=== PATIENT | female | born 1970 | race Hispanic/Latino ===

== ENCOUNTER 2021-11-05 13:24 | Inpatient (IN) | payer MEDICARE, OTHER ==
[~2021-11-05] VITALS: Ht 180.3 cm; Wt 146.5 kg
[2021-11-05 14:09] LABS: BASOPHILS % 0.4 % (0.0-1.0); EOSINOPHILS # (AUTO) 0.4 (0.0-0.4); EOSINOPHILS % 4.8 % (0.0-6.0); LYMPHOCYTES # (AUTO) 1.2 (1.0-3.2); MEAN CORPUSCULAR HEMOGLOBIN 32.4 pg (28-32); MEAN CORPUSCULAR HGB CONC 30.3 g/dL (31-35); MEAN CORPUSCULAR VOLUME 106.9 fL (81-99); MONOCYTES # (AUTO) 0.6 (0.2-0.8); MONOCYTES % 6.6 % (4.4-11.3); NEUTROPHILS # (AUTO) 6.1 (2.1-6.9); NEUTROPHILS % 72.3 % (38.7-80.0); PLATELET COUNT 291 x10e3/uL (140-360); RED BLOOD COUNT 2.04 x10e6/uL (3.6-5.1); RED CELL DISTRIBUTION WIDTH 15.9 % (11.7-14.4)
[2021-11-05 14:11] LABS: HEMATOCRIT 21.8 % (34.2-44.1); HEMOGLOBIN 6.6 g/dL (12.0-16.0)
[2021-11-05 14:26] LABS: ALBUMIN/GLOBULIN RATIO 0.8 (0.8-2.0); ANION GAP 18.6 mmol/L (8-16); CALCIUM 7.7 mg/dL (8.4-10.2); CREATININE, SERUM 6.17 mg/dL (0.57-1.11)
[2021-11-05 14:32] LABS: CREATINE KINASE MB 1.8 ng/mL (0-5.0)
[2021-11-05 14:33] LABS: POTASSIUM 6.6 mmol/L (3.5-5.1)
[2021-11-05] MEDS ORDERED: SODIUM BICARBONATE 8.4% INJ 50 ML SYR IV STA (14:34)
[2021-11-05] MEDS ORDERED: ALBUTEROL SULF 0.083% NEB SOLN 3 ML NEB NEB STA (14:34)
[2021-11-05] MEDS ORDERED: DEXTROSE 50% SYRINGE 50 ML IV STA (14:34)
[2021-11-05] MEDS ORDERED: INSULIN REGULAR, HUMAN 100 UNIT/1 ML SQ ONE (14:45)
[2021-11-05] MEDS ORDERED: CALCIUM GLUC 1 G/50 ML NACL 50 ML IV ONE (14:45)
[2021-11-05] MEDS ORDERED: DEXTROSE 50% SYRINGE 50 ML IV PRN (15:00)
[2021-11-05 16:42] VITALS: BP 175/68
[2021-11-05 16:46] VITALS: BP 175/68
[2021-11-05] MEDS: INSULIN LISPRO 100 UNIT/1 ML 3ML VIAL SQ SCH ×2 (16:50→20:42)
[2021-11-05 17:02] VITALS: BP 175/68
[2021-11-05] MEDS ORDERED: RENAPLEX-D TAB1 EACH PO (17:50)
[2021-11-05] MEDS ORDERED: VITAMIN D250 MCG PO (17:50)
[2021-11-05] MEDS ORDERED: GABAPENTIN100 MG PO (17:50)
[2021-11-05] MEDS ORDERED: BUMETANIDE1 MG PO (17:50)
[2021-11-05] MEDS ORDERED: NIFEDIPINE10 MG PO (17:50)
[2021-11-05] MEDS ORDERED: HUMALOG MI100 UNIT/2 SQ (17:50)
[2021-11-05] MEDS ORDERED: ONDANSETRON ODT4 MG PO (17:50)
[2021-11-05] MEDS ORDERED: RENAGEL800 MG PO (17:50)
[2021-11-05] MEDS ORDERED: OMEGA-3 FISH1000 MG PO (17:50)
[2021-11-05] MEDS ORDERED: LANTUS 3ML100 UNITS/ SC (17:50)
[2021-11-05] MEDS ORDERED: LOPID600 MG PO (17:50)
[2021-11-05] MEDS ORDERED: LOSARTAN POTASS25 MG PO (17:50)
[2021-11-05] MEDS ORDERED: CARVEDILOL12.5 MG PO (17:50)
[2021-11-05] MEDS ORDERED: SODIUM CHLORIDE 0.9% 1000ML 2,000 ML ONE (18:11)
[2021-11-05] MEDS: ACETAMINOPHEN 325 MG TAB PO PRN (19:00)
[2021-11-05 20:28] VITALS: BP 176/65
[2021-11-05] MEDS ORDERED: HEPARIN SOD (PORCINE) 1000 UNIT/ML SDV IV ONE (21:15)
[2021-11-05 21:18] VITALS: BP 176/65
[2021-11-06] VITALS (9 sets, daily range): BP systolic 121–164; BP diastolic 48–87
[2021-11-06 01:22] LABS: BASOPHILS % 0.4 % (0.0-1.0); EOSINOPHILS # (AUTO) 0.3 (0.0-0.4); EOSINOPHILS % 3.3 % (0.0-6.0); HEMATOCRIT 23.6 % (34.2-44.1); HEMOGLOBIN 7.5 g/dL (12.0-16.0); LYMPHOCYTES # (AUTO) 1.2 (1.0-3.2); LYMPHOCYTES % 13.4 % (18.0-39.1); MEAN CORPUSCULAR HEMOGLOBIN 31.5 pg (28-32); MEAN CORPUSCULAR HGB CONC 31.8 g/dL (31-35); MEAN CORPUSCULAR VOLUME 99.2 fL (81-99); MONOCYTES # (AUTO) 0.6 (0.2-0.8); MONOCYTES % 7.2 % (4.4-11.3); NEUTROPHILS # (AUTO) 6.4 (2.1-6.9); NEUTROPHILS % 74.2 % (38.7-80.0); PLATELET COUNT 285 x10e3/uL (140-360); RED BLOOD COUNT 2.38 x10e6/uL (3.6-5.1); RED CELL DISTRIBUTION WIDTH 17.1 % (11.7-14.4)
[2021-11-06] MEDS: ACETAMINOPHEN 325 MG TAB PO PRN (03:20)
[2021-11-06 06:37] LABS: BASOPHILS % 0.4 % (0.0-1.0); EOSINOPHILS # (AUTO) 0.4 (0.0-0.4); EOSINOPHILS % 4.5 % (0.0-6.0); HEMATOCRIT 23.6 % (34.2-44.1); HEMOGLOBIN 7.3 g/dL (12.0-16.0); LYMPHOCYTES # (AUTO) 1.3 (1.0-3.2); LYMPHOCYTES % 15.6 % (18.0-39.1); MEAN CORPUSCULAR HEMOGLOBIN 31.3 pg (28-32); MEAN CORPUSCULAR HGB CONC 30.9 g/dL (31-35); MEAN CORPUSCULAR VOLUME 101.3 fL (81-99); MONOCYTES # (AUTO) 0.7 (0.2-0.8); NEUTROPHILS % 70.4 % (38.7-80.0); PLATELET COUNT 276 x10e3/uL (140-360); RED BLOOD COUNT 2.33 x10e6/uL (3.6-5.1); RED CELL DISTRIBUTION WIDTH 17.3 % (11.7-14.4)
[2021-11-06 07:06] LABS: ALBUMIN 2.7 g/dL (3.5-5.0); ALBUMIN/GLOBULIN RATIO 0.8 (0.8-2.0); ANION GAP 14.9 mmol/L (8-16); CALCIUM 7.6 mg/dL (8.4-10.2); CREATININE, SERUM 4.34 mg/dL (0.57-1.11); POTASSIUM 4.9 mmol/L (3.5-5.1)
[2021-11-06] MEDS: INSULIN LISPRO 100 UNIT/1 ML 3ML VIAL SQ SCH ×2 (07:30→11:30)
[2021-11-06] MEDS ORDERED: HEPARIN SOD (PORCINE) 1000 UNIT/ML SDV IV PRN (10:15)
[2021-11-06] MEDS ORDERED: SODIUM CHLORIDE 0.9% 1000ML 2,000 ML IV PRN (10:15)
[2021-11-06] MEDS ORDERED: BUMETANIDE 1 MG TAB PO SCH (11:00)
[2021-11-06] MEDS ORDERED: ERGOCALCIFEROL 1250 MCG PO SCH (11:00)
[2021-11-06] MEDS ORDERED: ONDANSETRON HCL 4 MG ORAL DISINTEGRATING TAB PO PRN (11:00)
[2021-11-06] MEDS: INS LISP PRO/LISP HUMAN 75/25 100 UNITS/ML VIAL SC SCH ×2 (11:30→16:30)
[2021-11-06] MEDS ORDERED: SODIUM CHLORIDE 0.9% 250ML 250 ML IV ONE (12:00)
[2021-11-06] MEDS: SEVELAMER CARBONATE 800 MG TAB PO SCH ×2 (12:00→16:37)
[2021-11-06] MEDS ORDERED: SODIUM CHLORIDE 0.9% 250ML 250 ML ONE (12:22)
[2021-11-06] MEDS: GABAPENTIN 100 MG CAP PO SCH (16:37)
[2021-11-06] MEDS: GEMFIBROZIL 600 MG TAB PO SCH (16:37)
[2021-11-06 18:19] LABS: FERRITIN 429.46 ng/mL (4.63-204.00)
[2021-11-06] MEDS: INSULIN GLARGINE 100 UNITS/ML VIAL SQ SCH (21:49)
[2021-11-07] VITALS: BP 143/58
[2021-11-07 04:00] VITALS: BP 167/78
[2021-11-07 06:32] LABS: BASOPHILS % 0.4 % (0.0-1.0); EOSINOPHILS # (AUTO) 0.5 (0.0-0.4); EOSINOPHILS % 7.4 % (0.0-6.0); HEMATOCRIT 25.2 % (34.2-44.1); HEMOGLOBIN 7.9 g/dL (12.0-16.0); LYMPHOCYTES # (AUTO) 1.5 (1.0-3.2); LYMPHOCYTES % 20.3 % (18.0-39.1); MEAN CORPUSCULAR HEMOGLOBIN 31.6 pg (28-32); MEAN CORPUSCULAR HGB CONC 31.3 g/dL (31-35); MEAN CORPUSCULAR VOLUME 100.8 fL (81-99); MONOCYTES # (AUTO) 0.7 (0.2-0.8); MONOCYTES % 9.5 % (4.4-11.3); NEUTROPHILS # (AUTO) 4.4 (2.1-6.9); NEUTROPHILS % 61.6 % (38.7-80.0); PLATELET COUNT 260 x10e3/uL (140-360); RED CELL DISTRIBUTION WIDTH 17.2 % (11.7-14.4)
[2021-11-07 06:55] LABS: ALBUMIN 2.6 g/dL (3.5-5.0); ALBUMIN/GLOBULIN RATIO 0.7 (0.8-2.0); ANION GAP 14.5 mmol/L (8-16); CALCIUM 7.9 mg/dL (8.4-10.2); CREATININE, SERUM 4.16 mg/dL (0.57-1.11); POTASSIUM 4.5 mmol/L (3.5-5.1)
[2021-11-07 08:00] VITALS: BP 168/82
[2021-11-07] MEDS: SEVELAMER CARBONATE 800 MG TAB PO SCH (08:13)
[2021-11-07] MEDS: GABAPENTIN 100 MG CAP PO SCH (08:13)
[2021-11-07] MEDS: GEMFIBROZIL 600 MG TAB PO SCH (08:13)
[2021-11-07] MEDS: INS LISP PRO/LISP HUMAN 75/25 100 UNITS/ML VIAL SC SCH (08:14)
[2021-11-07] MEDS: INSULIN GLARGINE 100 UNITS/ML VIAL SQ SCH (08:15)
[2021-11-07] MEDS ORDERED: FOLIC ACID/CYANOCOB/PYRIDOXINE TAB PO SCH (09:00)
[2021-11-07] MEDS ORDERED: LOSARTAN POTASSIUM 25 MG TAB PO SCH (09:00)
[2021-11-07] MEDS ORDERED: CARVEDILOL 12.5 MG TAB PO SCH (09:00)
[2021-11-07] MEDS ORDERED: NIFEDIPINE CR 30 MG TAB PO SCH (09:00)
[2021-11-07] MEDS ORDERED: OMEGA 3 POLYUNSAT FATTY ACIDS 1000 MG SOFTGEL PO SCH (09:00)
[2021-11-07 11:30] VITALS: BP 133/75
== END 2021-11-07 11:34 | disposition home or self-care (01) | DRG 811 ==
LOC: ER 13:47 → ERHOLD 14:57 → ER 15:30 → MED/SURG3 15:43
PROVIDERS: ADMIT Internal Medicine; ATTEND Internal Medicine
PROC: 30233N1 Transfusion of Nonautologous Red Blood Cells into Peripheral Vein, Percutaneous Approach (ICD-10-PCS; principal; 2021-11-05)
DX: D62 Acute posthemorrhagic anemia (principal); N18.6 End stage renal disease; I13.2 Hypertensive heart and chronic kidney disease with heart failure and with stage 5 chronic kidney disease, or end stage renal disease; N92.1 Excessive and frequent menstruation with irregular cycle; E87.5 Hyperkalemia; Z99.2 Dependence on renal dialysis; Z91.15 Patient's noncompliance with renal dialysis; E11.22 Type 2 diabetes mellitus with diabetic chronic kidney disease; I50.9 Heart failure, unspecified; Z88.5 Allergy status to narcotic agent; Z88.8 Allergy status to other drugs, medicaments and biological substances; Z88.7 Allergy status to serum and vaccine; D63.1 Anemia in chronic kidney disease; Z20.822 Contact with and (suspected) exposure to COVID-19; Z83.3 Family history of diabetes mellitus; Z82.49 Family history of ischemic heart disease and other diseases of the circulatory system; E11.42 Type 2 diabetes mellitus with diabetic polyneuropathy; Z79.4 Long term (current) use of insulin
CPT/HCPCS: 36415; 71045; 80053; 82550; 82553; 82607; 82728; 82747; 82948; 83540; 83880; 84466; 84484; 85025; 86705; 86706; 86850; 86900; 86920; 87340; 93005; 94640; 94799; 99284; J1644; J1815; J1817; J7030; J7050; J7799; P9016; Q0162; U0002

== ENCOUNTER 2021-11-24 19:15 | Inpatient (IN) | payer MEDICARE, OTHER ==
[~2021-11-24] VITALS: Ht 154.9 cm; Wt 152.4 kg
[~2021-11-24 19:15] MED LIST: BUMETANIDE1 MG PO; CARVEDILOL12.5 MG PO; GABAPENTIN100 MG PO; HUMALOG MI100 UNIT/2 SQ; LANTUS 3ML100 UNITS/ SC; LOPID600 MG PO; LOSARTAN POTASS25 MG PO; NIFEDIPINE10 MG PO; OMEGA-3 FISH1000 MG PO; ONDANSETRON ODT4 MG PO; RENAGEL800 MG PO; RENAPLEX-D TAB1 EACH PO; VITAMIN D250 MCG PO
[2021-11-24] MEDS ORDERED: SODIUM CHLORIDE FLUSH 10 ML SYR IV PRN (19:30)
[2021-11-24 19:41] LABS: BASOPHILS # (AUTO) 0.1 (0.0-0.1); BASOPHILS % 0.5 % (0.0-1.0); EOSINOPHILS # (AUTO) 0.5 (0.0-0.4); EOSINOPHILS % 3.8 % (0.0-6.0); HEMATOCRIT 32.4 % (34.2-44.1); HEMOGLOBIN 10.2 g/dL (12.0-16.0); LYMPHOCYTES # (AUTO) 1.5 (1.0-3.2); LYMPHOCYTES % 11.8 % (18.0-39.1); MEAN CORPUSCULAR HEMOGLOBIN 31.6 pg (28-32); MEAN CORPUSCULAR HGB CONC 31.5 g/dL (31-35); MEAN CORPUSCULAR VOLUME 100.3 fL (81-99); MONOCYTES # (AUTO) 0.9 (0.2-0.8); MONOCYTES % 7.1 % (4.4-11.3); NEUTROPHILS # (AUTO) 9.5 (2.1-6.9); NEUTROPHILS % 75.8 % (38.7-80.0); PLATELET COUNT 383 x10e3/uL (140-360); RED BLOOD COUNT 3.23 x10e6/uL (3.6-5.1); RED CELL DISTRIBUTION WIDTH 15.4 % (11.7-14.4)
[2021-11-24] MEDS ORDERED: Morphine 4mg Syringe 4 MG/ML INJ IV PRN (19:45)
[2021-11-24] MEDS ORDERED: ONDANSETRON HCL INJ 2MG/ML 2ML 2 MG/ML VIAL IV PRN (19:45)
[2021-11-24] MEDS ORDERED: HEPARIN SOD (PORCINE) 1000 UNIT/ML 10ML MDV IV ONE (19:45)
[2021-11-24] MEDS: ASPIRIN 325 MG TAB PO ONE ×2 (19:48→19:55)
[2021-11-24 19:50] LABS: INR 1.07; PROTHROMBIN TIME 14.9 seconds (11.9-14.5)
[2021-11-24 19:57] LABS: ALBUMIN 3.5 g/dL (3.5-5.0); ALBUMIN/GLOBULIN RATIO 0.7 (0.8-2.0); ANION GAP 20.4 mmol/L (8-16); CALCIUM 9.3 mg/dL (8.4-10.2); CREATININE, SERUM 5.5 mg/dL (0.57-1.11); POTASSIUM 4.4 mmol/L (3.5-5.1)
[2021-11-24] MEDS ORDERED: ASPIRIN 81 MG CHEW TAB ONE (19:59)
[2021-11-24] MEDS ORDERED: HEPARIN SOD (PORCINE) 5,000 UNIT/ML VIAL ONE (19:59)
[2021-11-24] MEDS ORDERED: DEXTROSE 50% SYRINGE 50 ML IV PRN ×2 (20:00→21:00)
[2021-11-24] MEDS ORDERED: ONDANSETRON HCL 4 MG ORAL DISINTEGRATING TAB PO PRN (20:00)
[2021-11-24] MEDS ORDERED: HEPARIN SOD/SOD CHLORIDE 2,000 ML ONE (20:05)
[2021-11-24] MEDS ORDERED: LIDOCAINE HCL 2% LOCAL 20 ML VIAL ONE (20:05)
[2021-11-24] MEDS ORDERED: HEPARIN SOD (PORCINE) 1000 UNIT/ML 30ML ONE (20:05)
[2021-11-24] MEDS ORDERED: IOPAMIDOL 370 MG/ML 100 ML INFUS..BTL INJ ONE ×2 (20:05→20:37)
[2021-11-24] MEDS ORDERED: SODIUM CHLORIDE 0.9% 1000ML 1,000 ML ONE (20:06)
[2021-11-24] MEDS ORDERED: VERAPAMIL HCL 2.5 MG/ML 2 ML VIAL ONE (20:06)
[2021-11-24] MEDS: Morphine 4mg Syringe 4 MG/ML INJ IV STA ×2 (20:06→20:13)
[2021-11-24] MEDS ORDERED: NITROGLYCERIN/D5W 200 MCG/ML 250 ML ONE (20:06)
[2021-11-24] MEDS ORDERED: ASPIRIN 325 MG TAB PO STA (20:06)
[2021-11-24] MEDS ORDERED: MIDAZOLAM HCL 2 MG/2 ML VIAL ONE (20:11)
[2021-11-24] MEDS ORDERED: FENTANYL CITRATE/PF 100MCG/2 ML INJ ONE (20:12)
[2021-11-24] MEDS ORDERED: HEPARIN SOD (PORCINE) 5,000 UNIT/ML VIAL IV ONE (20:15)
[2021-11-24 20:20] LABS: CREATINE KINASE MB 1.6 ng/mL (0-5.0)
[2021-11-24 20:32] LABS: MAGNESIUM 2.3 MG/DL (1.3-2.1)
[2021-11-24] MEDS ORDERED: EPTIFIBATIDE 10 ML ONE ×3 (20:40→20:44)
[2021-11-24] MEDS ORDERED: EPTIFIBATIDE 75mg 100ML 100 ML ONE (20:41)
[2021-11-24] MEDS ORDERED: ASPIRIN 81 MG CHEW TAB PO ONE (20:45)
[2021-11-24] MEDS ORDERED: NITROGLYCERIN 0.4 MG SUBL SL PRN (20:45)
[2021-11-24] MEDS ORDERED: Morphine 2mg Syringe 2 MG/ML SYR IV PRN (20:45)
[2021-11-24] MEDS ORDERED: SODIUM CHLORIDE FLUSH 10 ML SYR INJ PRN (20:45)
[2021-11-24] MEDS ORDERED: PRASUGREL 10 MG TAB ONE (20:52)
[2021-11-24] MEDS: INSULIN GLARGINE 100 UNITS/ML VIAL SQ SCH (21:00)
[2021-11-24] MEDS: ATORVASTATIN 40 MG TAB PO SCH (21:00)
[2021-11-24] MEDS ORDERED: INSULIN REGULAR, HUMAN 100 UNIT/1 ML SQ SCH (21:00)
[2021-11-24] MEDS: INSULIN REGULAR, HUMAN 100 UNIT/1 ML SQ SCH (21:00)
[2021-11-24] MEDS: FAMOTIDINE 20 MG TAB PO SCH (21:00)
[2021-11-24] MEDS: METOPROLOL SUCCINATE 50 MG TAB XL PO ONE ×2 (21:45→21:52)
[2021-11-24 21:57] VITALS: BP 163/73
[2021-11-24 22:00] VITALS: BP 170/87
[2021-11-24 23:00] VITALS: BP 161/79
[2021-11-25] VITALS (54 sets, daily range): BP systolic 103–178; BP diastolic 58–120
[2021-11-25 04:52] LABS: BASOPHILS # (AUTO) 0.1 (0.0-0.1); BASOPHILS % 0.4 % (0.0-1.0); EOSINOPHILS # (AUTO) 0.3 (0.0-0.4); EOSINOPHILS % 2.4 % (0.0-6.0); HEMATOCRIT 28.2 % (34.2-44.1); HEMOGLOBIN 8.9 g/dL (12.0-16.0); LYMPHOCYTES # (AUTO) 1.1 (1.0-3.2); MEAN CORPUSCULAR HEMOGLOBIN 31.9 pg (28-32); MEAN CORPUSCULAR HGB CONC 31.6 g/dL (31-35); MEAN CORPUSCULAR VOLUME 101.1 fL (81-99); MONOCYTES # (AUTO) 0.8 (0.2-0.8); MONOCYTES % 5.5 % (4.4-11.3); NEUTROPHILS # (AUTO) 11.6 (2.1-6.9); NEUTROPHILS % 82.8 % (38.7-80.0); PLATELET COUNT 311 x10e3/uL (140-360); RED BLOOD COUNT 2.79 x10e6/uL (3.6-5.1); RED CELL DISTRIBUTION WIDTH 15.3 % (11.7-14.4)
[2021-11-25 05:08] LABS: ALBUMIN 2.9 g/dL (3.5-5.0); ALBUMIN/GLOBULIN RATIO 0.7 (0.8-2.0); ANION GAP 18.9 mmol/L (8-16); CALCIUM 8.1 mg/dL (8.4-10.2); CREATININE, SERUM 5.63 mg/dL (0.57-1.11); POTASSIUM 4.9 mmol/L (3.5-5.1)
[2021-11-25 06:04] LABS: CHOL/HDL RATIO 7.6 (3.0-3.6)
[2021-11-25 06:07] LABS: CREATINE KINASE MB 77.9 ng/mL (0-5.0)
[2021-11-25] MEDS: INSULIN REGULAR, HUMAN 100 UNIT/1 ML SQ SCH ×4 (07:30→20:49)
[2021-11-25] MEDS: SEVELAMER CARBONATE 800 MG TAB PO SCH ×3 (07:51→16:33)
[2021-11-25] MEDS: ASPIRIN 81 MG ENTERIC COATED PO SCH (07:52)
[2021-11-25] MEDS: PRASUGREL 10 MG TAB PO SCH (07:52)
[2021-11-25] MEDS: GABAPENTIN 100 MG CAP PO SCH ×2 (07:53→16:32)
[2021-11-25] MEDS: GEMFIBROZIL 600 MG TAB PO SCH ×2 (07:53→16:32)
[2021-11-25] MEDS: OMEGA 3 POLYUNSAT FATTY ACIDS 1000 MG SOFTGEL PO SCH (07:53)
[2021-11-25] MEDS: FAMOTIDINE 20 MG TAB PO SCH ×2 (07:54→20:49)
[2021-11-25] MEDS: NIFEDIPINE 10 MG CAP PO SCH (07:54)
[2021-11-25] MEDS ORDERED: ERGOCALCIFEROL 1250 MCG PO SCH (08:15)
[2021-11-25] MEDS ORDERED: BUMETANIDE 1 MG TAB PO SCH (08:15)
[2021-11-25] MEDS ORDERED: HYDRALAZINE HCL 20 MG/ML VIAL IV PRN (08:30)
[2021-11-25] MEDS: ONDANSETRON HCL INJ 2MG/ML 2ML 2 MG/ML VIAL IV PRN (08:58)
[2021-11-25] MEDS: FOLIC PO SCH (09:00)
[2021-11-25] MEDS: ZINC PO SCH (09:00)
[2021-11-25] MEDS: CARVEDILOL 12.5 MG TAB PO SCH (09:00)
[2021-11-25] MEDS: LOSARTAN POTASSIUM 25 MG TAB PO SCH (09:00)
[2021-11-25] MEDS: [UNRECOGNIZED DRUG - OTHER] PO SCH (09:00)
[2021-11-25] MEDS ORDERED: METOPROLOL SUCCINATE 50 MG TAB XL PO SCH (09:00)
[2021-11-25] MEDS: SELENOMETH PO SCH (09:00)
[2021-11-25] MEDS: D3 PO SCH (09:00)
[2021-11-25] MEDS ORDERED: ONDANSETRON HCL INJ 2MG/ML 2ML 2 MG/ML VIAL ONE (09:04)
[2021-11-25] MEDS ORDERED: SODIUM CHLORIDE 0.9% 1000ML 2,000 ML ONE (10:16)
[2021-11-25] MEDS ORDERED: SODIUM CHLORIDE 0.9% 1000ML 2,000 ML IV PRN (10:30)
[2021-11-25] MEDS ORDERED: SODIUM CHLORIDE 0.9% 250ML 500 ML IV PRN (10:30)
[2021-11-25] MEDS ORDERED: HEPARIN SOD (PORCINE) 1000 UNIT/ML SDV IV PRN (10:30)
[2021-11-25 12:09] LABS: CREATINE KINASE MB 51.3 ng/mL (0-5.0)
[2021-11-25] MEDS: EPOETIN ALFA-EPBX 10,000 UNIT/ML VIAL SC SCH (16:33)
[2021-11-25] MEDS: ATORVASTATIN 40 MG TAB PO SCH (20:49)
[2021-11-25] MEDS: INSULIN GLARGINE 100 UNITS/ML VIAL SQ SCH (20:50)
[2021-11-26] VITALS (19 sets, daily range): BP systolic 95–166; BP diastolic 55–81
[2021-11-26 04:59] LABS: BASOPHILS % 0.4 % (0.0-1.0); EOSINOPHILS # (AUTO) 0.3 (0.0-0.4); EOSINOPHILS % 3.2 % (0.0-6.0); HEMATOCRIT 25.3 % (34.2-44.1); HEMOGLOBIN 7.7 g/dL (12.0-16.0); LYMPHOCYTES # (AUTO) 1.2 (1.0-3.2); MEAN CORPUSCULAR HEMOGLOBIN 31.4 pg (28-32); MEAN CORPUSCULAR HGB CONC 30.4 g/dL (31-35); MEAN CORPUSCULAR VOLUME 103.3 fL (81-99); MONOCYTES # (AUTO) 0.6 (0.2-0.8); MONOCYTES % 6.5 % (4.4-11.3); NEUTROPHILS # (AUTO) 7.5 (2.1-6.9); NEUTROPHILS % 77.4 % (38.7-80.0); PLATELET COUNT 276 x10e3/uL (140-360); RED BLOOD COUNT 2.45 x10e6/uL (3.6-5.1); RED CELL DISTRIBUTION WIDTH 15.4 % (11.7-14.4)
[2021-11-26 05:20] LABS: ALBUMIN 2.5 g/dL (3.5-5.0); ALBUMIN/GLOBULIN RATIO 0.6 (0.8-2.0); ANION GAP 15.2 mmol/L (8-16); CALCIUM 7.7 mg/dL (8.4-10.2); CREATININE, SERUM 4.54 mg/dL (0.57-1.11); POTASSIUM 4.2 mmol/L (3.5-5.1)
[2021-11-26] MEDS: INSULIN REGULAR, HUMAN 100 UNIT/1 ML SQ SCH ×4 (07:15→21:00)
[2021-11-26] MEDS: D3 PO SCH (07:35)
[2021-11-26] MEDS: SEVELAMER CARBONATE 800 MG TAB PO SCH ×3 (07:35→16:45)
[2021-11-26] MEDS: ZINC PO SCH (07:35)
[2021-11-26] MEDS: [UNRECOGNIZED DRUG - OTHER] PO SCH (07:35)
[2021-11-26] MEDS: SELENOMETH PO SCH (07:35)
[2021-11-26] MEDS: FOLIC PO SCH (07:35)
[2021-11-26] MEDS: PRASUGREL 10 MG TAB PO SCH (08:08)
[2021-11-26] MEDS: GEMFIBROZIL 600 MG TAB PO SCH ×2 (08:08→16:45)
[2021-11-26] MEDS: ASPIRIN 81 MG ENTERIC COATED PO SCH (08:08)
[2021-11-26] MEDS: ERGOCALCIFEROL 50,000 UNIT CAP PO SCH (08:08)
[2021-11-26] MEDS: CARVEDILOL 12.5 MG TAB PO SCH (08:08)
[2021-11-26] MEDS: OMEGA 3 POLYUNSAT FATTY ACIDS 1000 MG SOFTGEL PO SCH (08:08)
[2021-11-26] MEDS: LOSARTAN POTASSIUM 25 MG TAB PO SCH (08:08)
[2021-11-26] MEDS: GABAPENTIN 100 MG CAP PO SCH ×2 (08:08→16:45)
[2021-11-26] MEDS: FAMOTIDINE 20 MG TAB PO SCH ×2 (08:08→21:45)
[2021-11-26] MEDS: NIFEDIPINE 10 MG CAP PO SCH (08:09)
[2021-11-26] MEDS ORDERED: NIFEDIPINE 10 MG CAP PO ONE (09:15)
[2021-11-26] MEDS ORDERED: NIFEDIPINE CR 30 MG TAB PO ONE (09:30)
[2021-11-26] MEDS: ONDANSETRON HCL INJ 2MG/ML 2ML 2 MG/ML VIAL IV PRN (10:27)
[2021-11-26] MEDS: EPOETIN ALFA-EPBX 10,000 UNIT/ML VIAL SC SCH (16:45)
[2021-11-26] MEDS: INSULIN GLARGINE 100 UNITS/ML VIAL SQ SCH (21:00)
[2021-11-26] MEDS: ATORVASTATIN 40 MG TAB PO SCH (21:45)
[2021-11-27] VITALS (8 sets, daily range): BP systolic 99–110; BP diastolic 53–89
[2021-11-27] MEDS: INSULIN REGULAR, HUMAN 100 UNIT/1 ML SQ SCH ×4 (07:30→20:49)
[2021-11-27] MEDS: D3 PO SCH (09:00)
[2021-11-27] MEDS: SELENOMETH PO SCH (09:00)
[2021-11-27] MEDS: FOLIC PO SCH (09:00)
[2021-11-27] MEDS: ZINC PO SCH (09:00)
[2021-11-27] MEDS: [UNRECOGNIZED DRUG - OTHER] PO SCH (09:00)
[2021-11-27] MEDS: ASPIRIN 81 MG ENTERIC COATED PO SCH (09:20)
[2021-11-27] MEDS: SEVELAMER CARBONATE 800 MG TAB PO SCH ×3 (09:20→16:40)
[2021-11-27] MEDS: CARVEDILOL 12.5 MG TAB PO SCH (09:21)
[2021-11-27] MEDS: GEMFIBROZIL 600 MG TAB PO SCH ×2 (09:22→16:40)
[2021-11-27] MEDS: OMEGA 3 POLYUNSAT FATTY ACIDS 1000 MG SOFTGEL PO SCH (09:22)
[2021-11-27] MEDS: PRASUGREL 10 MG TAB PO SCH (09:22)
[2021-11-27] MEDS: GABAPENTIN 100 MG CAP PO SCH ×2 (09:22→16:40)
[2021-11-27] MEDS: FAMOTIDINE 20 MG TAB PO SCH ×2 (09:22→21:02)
[2021-11-27] MEDS: LOSARTAN POTASSIUM 25 MG TAB PO SCH (09:22)
[2021-11-27] MEDS: NIFEDIPINE CR 30 MG TAB PO SCH (11:00)
[2021-11-27] MEDS ORDERED: GUAIFENESIN/DEXTROMETHORPHAN LIQD 5 ML UDC NG PRN (18:15)
[2021-11-27] MEDS: INSULIN GLARGINE 100 UNITS/ML VIAL SQ SCH (20:50)
[2021-11-27] MEDS: ATORVASTATIN 40 MG TAB PO SCH (21:02)
[2021-11-28] VITALS (8 sets, daily range): BP systolic 88–122; BP diastolic 48–78
[2021-11-28] MEDS: INSULIN REGULAR, HUMAN 100 UNIT/1 ML SQ SCH ×4 (07:30→21:00)
[2021-11-28] MEDS: SEVELAMER CARBONATE 800 MG TAB PO SCH ×3 (08:00→16:41)
[2021-11-28] MEDS: SELENOMETH PO SCH (08:16)
[2021-11-28] MEDS: FOLIC PO SCH (08:16)
[2021-11-28] MEDS: D3 PO SCH (08:16)
[2021-11-28] MEDS: ZINC PO SCH (08:16)
[2021-11-28] MEDS: [UNRECOGNIZED DRUG - OTHER] PO SCH (08:16)
[2021-11-28] MEDS: ASPIRIN 81 MG ENTERIC COATED PO SCH (08:50)
[2021-11-28] MEDS: GABAPENTIN 100 MG CAP PO SCH ×2 (08:51→16:41)
[2021-11-28] MEDS: GEMFIBROZIL 600 MG TAB PO SCH ×2 (08:51→16:41)
[2021-11-28] MEDS: LOSARTAN POTASSIUM 25 MG TAB PO SCH (08:51)
[2021-11-28] MEDS: FAMOTIDINE 20 MG TAB PO SCH ×2 (08:51→21:48)
[2021-11-28] MEDS: CARVEDILOL 12.5 MG TAB PO SCH (08:51)
[2021-11-28] MEDS: PRASUGREL 10 MG TAB PO SCH (08:51)
[2021-11-28] MEDS: OMEGA 3 POLYUNSAT FATTY ACIDS 1000 MG SOFTGEL PO SCH (08:51)
[2021-11-28] MEDS: NIFEDIPINE CR 30 MG TAB PO SCH (09:00)
[2021-11-28] MEDS ORDERED: ACETAMINOPHEN 325 MG TAB PO PRN (16:45)
[2021-11-28] MEDS: INSULIN GLARGINE 100 UNITS/ML VIAL SQ SCH (21:00)
[2021-11-28] MEDS: ATORVASTATIN 40 MG TAB PO SCH (21:48)
[2021-11-29] VITALS: BP 105/71
[2021-11-29 04:00] VITALS: BP 111/76
[2021-11-29] MEDS: INSULIN REGULAR, HUMAN 100 UNIT/1 ML SQ SCH ×3 (07:30→15:42)
[2021-11-29 07:54] VITALS: BP 110/53
[2021-11-29 08:18] VITALS: BP 110/53
[2021-11-29] MEDS: LOSARTAN POTASSIUM 25 MG TAB PO SCH (09:00)
[2021-11-29] MEDS: SEVELAMER CARBONATE 800 MG TAB PO SCH ×3 (09:00→16:57)
[2021-11-29] MEDS: D3 PO SCH (09:00)
[2021-11-29] MEDS: ZINC PO SCH (09:00)
[2021-11-29] MEDS: FOLIC PO SCH (09:00)
[2021-11-29] MEDS: CARVEDILOL 12.5 MG TAB PO SCH (09:00)
[2021-11-29] MEDS: SELENOMETH PO SCH (09:00)
[2021-11-29] MEDS: [UNRECOGNIZED DRUG - OTHER] PO SCH (09:00)
[2021-11-29] MEDS: NIFEDIPINE CR 30 MG TAB PO SCH (09:00)
[2021-11-29] MEDS ORDERED: SODIUM CHLORIDE 0.9% 1000ML 2,000 ML ONE (09:27)
[2021-11-29] MEDS ORDERED: HEPARIN SOD (PORCINE) 1000 UNIT/ML SDV IV PRN (09:30)
[2021-11-29] MEDS ORDERED: ALBUMIN 25% 12.5GM 0.25 GM/ML BTL IV PRN (09:30)
[2021-11-29] MEDS: ERGOCALCIFEROL 50,000 UNIT CAP PO SCH (10:17)
[2021-11-29] MEDS: ASPIRIN 81 MG ENTERIC COATED PO SCH (10:18)
[2021-11-29] MEDS: OMEGA 3 POLYUNSAT FATTY ACIDS 1000 MG SOFTGEL PO SCH (10:18)
[2021-11-29] MEDS: GEMFIBROZIL 600 MG TAB PO SCH ×2 (10:18→16:57)
[2021-11-29] MEDS: GABAPENTIN 100 MG CAP PO SCH ×2 (10:18→16:57)
[2021-11-29] MEDS: PRASUGREL 10 MG TAB PO SCH (10:18)
[2021-11-29] MEDS: FAMOTIDINE 20 MG TAB PO SCH (10:19)
[2021-11-29] MEDS ORDERED: ONDANSETRON HCL 4 MG ORAL DISINTEGRATING TAB PO PRN (12:45)
[2021-11-29 15:50] VITALS: BP 157/84
[2021-11-29] MEDS: EPOETIN ALFA-EPBX 10,000 UNIT/ML VIAL SC SCH (16:57)
== END 2021-11-29 18:16 | disposition home or self-care (01) | DRG 246 ==
LOC: ER 19:20 → ERHOLD 19:49 → ICU 21:15 → MED/SURG3 11-26 17:41
PROVIDERS: ADMIT Internal Medicine; ATTEND Internal Medicine
PROC: 027034Z Dilation of Coronary Artery, One Artery with Drug-eluting Intraluminal Device, Percutaneous Approach (ICD-10-PCS; principal; 2021-11-24)
PROC: 4A023N7 Measurement of Cardiac Sampling and Pressure, Left Heart, Percutaneous Approach (ICD-10-PCS; 2021-11-24)
PROC: B2111ZZ Fluoroscopy of Multiple Coronary Arteries using Low Osmolar Contrast (ICD-10-PCS; 2021-11-24)
PROC: B2151ZZ Fluoroscopy of Left Heart using Low Osmolar Contrast (ICD-10-PCS; 2021-11-24)
DX: I21.19 ST elevation (STEMI) myocardial infarction involving other coronary artery of inferior wall (principal); N18.6 End stage renal disease; I13.2 Hypertensive heart and chronic kidney disease with heart failure and with stage 5 chronic kidney disease, or end stage renal disease; I50.22 Chronic systolic (congestive) heart failure; Z68.44 Body mass index [BMI] 60.0-69.9, adult; E11.22 Type 2 diabetes mellitus with diabetic chronic kidney disease; Z99.2 Dependence on renal dialysis; F41.9 Anxiety disorder, unspecified; Z86.718 Personal history of other venous thrombosis and embolism; Z90.49 Acquired absence of other specified parts of digestive tract; Z88.5 Allergy status to narcotic agent; Z88.8 Allergy status to other drugs, medicaments and biological substances; E66.9 Obesity, unspecified; I25.10 Atherosclerotic heart disease of native coronary artery without angina pectoris; E11.42 Type 2 diabetes mellitus with diabetic polyneuropathy; E66.01 Morbid (severe) obesity due to excess calories; D63.1 Anemia in chronic kidney disease; Z88.7 Allergy status to serum and vaccine; Z20.822 Contact with and (suspected) exposure to COVID-19
CPT/HCPCS: 36415; 71045; 80053; 80061; 82550; 82553; 82948; 83735; 84100; 84484; 85025; 85610; 86705; 86706; 86850; 86900; 87340; 90962; 92920; 92928; 93005; 93306; 93458; 94760; 94799; 96361; 96372; 99152; 99153; 99251; 99284; C1725; C1874; C1894; J1327; J1644; J1815; J1817; J2001; J2250; J2270; J2405; J3010; J7030; Q0162; Q9967; U0002

== ENCOUNTER 2022-01-03 19:38 | Emergency (ER) | payer MEDICARE, OTHER ==
[~2022-01-03] VITALS: Ht 154.9 cm; Wt 152.4 kg
[2022-01-03] MEDS ORDERED: METOPROLOL TARTRATE INJ 1 MG/ML VIAL IV ONE (20:00)
[2022-01-03 20:22] LABS: BASOPHILS # (AUTO) 0.1 (0.0-0.1); BASOPHILS % 0.5 % (0.0-1.0); EOSINOPHILS # (AUTO) 0.3 (0.0-0.4); EOSINOPHILS % 2.4 % (0.0-6.0); HEMATOCRIT 24.9 % (34.2-44.1); HEMOGLOBIN 7.5 g/dL (12.0-16.0); LYMPHOCYTES # (AUTO) 1.3 (1.0-3.2); LYMPHOCYTES % 12.5 % (18.0-39.1); MEAN CORPUSCULAR HEMOGLOBIN 30.9 pg (28-32); MEAN CORPUSCULAR HGB CONC 30.1 g/dL (31-35); MEAN CORPUSCULAR VOLUME 102.5 fL (81-99); MONOCYTES # (AUTO) 0.9 (0.2-0.8); MONOCYTES % 8.4 % (4.4-11.3); NEUTROPHILS # (AUTO) 7.7 (2.1-6.9); NEUTROPHILS % 74.7 % (38.7-80.0); PLATELET COUNT 403 x10e3/uL (140-360); RED BLOOD COUNT 2.43 x10e6/uL (3.6-5.1); RED CELL DISTRIBUTION WIDTH 16.9 % (11.7-14.4)
[2022-01-03] MEDS ORDERED: ONDANSETRON HCL INJ 2MG/ML 2ML 2 MG/ML VIAL ONE (20:22)
[2022-01-03 20:41] LABS: ALBUMIN 2.8 g/dL (3.5-5.0); ALBUMIN/GLOBULIN RATIO 0.6 (0.8-2.0); ANION GAP 20.5 mmol/L (8-16); CALCIUM 8.4 mg/dL (8.4-10.2); CREATININE, SERUM 4.89 mg/dL (0.57-1.11); POTASSIUM 3.5 mmol/L (3.5-5.1)
[2022-01-03 22:16] VITALS: BP 121/89
== END 2022-01-03 22:19 | disposition home or self-care (01) ==
LOC: ER 20:13
DX: R42 Dizziness and giddiness (principal); I63.9 Cerebral infarction, unspecified; D64.9 Anemia, unspecified; I12.0 Hypertensive chronic kidney disease with stage 5 chronic kidney disease or end stage renal disease; E11.22 Type 2 diabetes mellitus with diabetic chronic kidney disease; N18.6 End stage renal disease; Z99.2 Dependence on renal dialysis; I50.9 Heart failure, unspecified; E78.5 Hyperlipidemia, unspecified; K21.9 Gastro-esophageal reflux disease without esophagitis; F41.9 Anxiety disorder, unspecified; R94.31 Abnormal electrocardiogram [ECG] [EKG]
CPT/HCPCS: 36415; 70450; 71045; 80053; 82550; 82553; 84484; 85025; 93005; 99284; J2405

== ENCOUNTER 2022-01-07 10:54 | Observation (INO) | payer MEDICARE, OTHER ==
[~2022-01-07] VITALS: Ht 177.8 cm; Wt 136.1 kg
[2022-01-07 12:23] LABS: BASOPHILS % 0.5 % (0.0-1.0); EOSINOPHILS # (AUTO) 0.4 (0.0-0.4); EOSINOPHILS % 4.9 % (0.0-6.0); LYMPHOCYTES # (AUTO) 1.3 (1.0-3.2); LYMPHOCYTES % 16.8 % (18.0-39.1); MEAN CORPUSCULAR HEMOGLOBIN 31.1 pg (28-32); MEAN CORPUSCULAR VOLUME 103.8 fL (81-99); MONOCYTES # (AUTO) 0.7 (0.2-0.8); MONOCYTES % 8.4 % (4.4-11.3); NEUTROPHILS # (AUTO) 5.3 (2.1-6.9); NEUTROPHILS % 68.1 % (38.7-80.0); PLATELET COUNT 348 x10e3/uL (140-360); RED BLOOD COUNT 2.12 x10e6/uL (3.6-5.1); RED CELL DISTRIBUTION WIDTH 16.9 % (11.7-14.4)
[2022-01-07 12:25] LABS: HEMOGLOBIN 6.6 g/dL (12.0-16.0)
[2022-01-07 12:29] LABS: INR 1.29; PROTHROMBIN TIME 17.2 seconds (11.9-14.5)
[2022-01-07 12:30] LABS: PARTIAL THROMBOPLASTIN TIME 42.7 seconds (23.8-35.5)
[2022-01-07 12:39] LABS: ALBUMIN 2.7 g/dL (3.5-5.0); ALBUMIN/GLOBULIN RATIO 0.6 (0.8-2.0); ANION GAP 19.6 mmol/L (8-16); CALCIUM 8.5 mg/dL (8.4-10.2); CREATININE, SERUM 6.96 mg/dL (0.57-1.11); POTASSIUM 4.6 mmol/L (3.5-5.1)
[2022-01-07] MEDS ORDERED: SODIUM CHLORIDE 0.9% 250ML 250 ML IV ONE (13:00)
[2022-01-07] MEDS ORDERED: SODIUM CHLORIDE FLUSH 10 ML SYR INJ PRN (13:15)
[2022-01-07] MEDS ORDERED: ONDANSETRON HCL INJ 2MG/ML 2ML 2 MG/ML VIAL IV PRN (13:15)
[2022-01-07] MEDS ORDERED: ACETAMINOPHEN 325 MG TAB PO PRN (14:30)
[2022-01-07] MEDS ORDERED: SODIUM CHLORIDE 0.9% 1000ML 1,000 ML ONE (15:08)
[2022-01-07 15:22] VITALS: BP 145/85
[2022-01-07] MEDS ORDERED: SODIUM CHLORIDE 0.9% 250ML 250 ML ONE (17:04)
[2022-01-07 17:41] VITALS: BP 145/85
[2022-01-07] MEDS ORDERED: SODIUM CHLORIDE 0.9% 1000ML 2,000 ML IV PRN (18:30)
[2022-01-07] MEDS ORDERED: HEPARIN SOD (PORCINE) 1000 UNIT/ML SDV IV PRN (18:30)
[2022-01-07 20:00] VITALS: BP 141/58
[2022-01-07 21:00] VITALS: BP 141/58
[2022-01-08] VITALS: BP 106/65
[2022-01-08 04:00] VITALS: BP 127/86
[2022-01-08 06:47] LABS: BASOPHILS # (AUTO) 0.1 (0.0-0.1); BASOPHILS % 0.7 % (0.0-1.0); EOSINOPHILS # (AUTO) 0.4 (0.0-0.4); EOSINOPHILS % 4.7 % (0.0-6.0); HEMATOCRIT 26.8 % (34.2-44.1); HEMOGLOBIN 8.4 g/dL (12.0-16.0); LYMPHOCYTES # (AUTO) 1.1 (1.0-3.2); LYMPHOCYTES % 13.7 % (18.0-39.1); MEAN CORPUSCULAR HEMOGLOBIN 30.8 pg (28-32); MEAN CORPUSCULAR HGB CONC 31.3 g/dL (31-35); MEAN CORPUSCULAR VOLUME 98.2 fL (81-99); MONOCYTES # (AUTO) 0.6 (0.2-0.8); NEUTROPHILS # (AUTO) 5.5 (2.1-6.9); NEUTROPHILS % 72.1 % (38.7-80.0); PLATELET COUNT 292 x10e3/uL (140-360); RED BLOOD COUNT 2.73 x10e6/uL (3.6-5.1); RED CELL DISTRIBUTION WIDTH 17.7 % (11.7-14.4)
[2022-01-08 07:35] LABS: ALBUMIN 2.7 g/dL (3.5-5.0); ALBUMIN/GLOBULIN RATIO 0.7 (0.8-2.0); ANION GAP 15.9 mmol/L (8-16); CALCIUM 8.3 mg/dL (8.4-10.2); CREATININE, SERUM 4.62 mg/dL (0.57-1.11); POTASSIUM 3.9 mmol/L (3.5-5.1)
[2022-01-08 08:06] VITALS: BP 126/80
[2022-01-08 09:00] VITALS: BP 126/80
[2022-01-08] MEDS ORDERED: DOCUSATE SODIUM 100 MG CAP PO SCH (09:00)
[2022-01-08 12:02] VITALS: BP 115/73
== END 2022-01-08 14:14 | disposition home or self-care (01) ==
LOC: ER 12:29 → ERHOLD 13:12 → MED/SURG2 14:49
PROVIDERS: ADMIT Internal Medicine; ATTEND Internal Medicine
DX: I13.2 Hypertensive heart and chronic kidney disease with heart failure and with stage 5 chronic kidney disease, or end stage renal disease (principal); I69.322 Dysarthria following cerebral infarction; Z20.822 Contact with and (suspected) exposure to COVID-19; I25.2 Old myocardial infarction; F32.A Depression, unspecified; I50.22 Chronic systolic (congestive) heart failure; N18.6 End stage renal disease; E11.22 Type 2 diabetes mellitus with diabetic chronic kidney disease; Z99.2 Dependence on renal dialysis; Z79.899 Other long term (current) drug therapy; E78.5 Hyperlipidemia, unspecified; E66.01 Morbid (severe) obesity due to excess calories; Z68.41 Body mass index [BMI] 40.0-44.9, adult; C54.1 Malignant neoplasm of endometrium; I48.91 Unspecified atrial fibrillation; Z79.01 Long term (current) use of anticoagulants
CPT/HCPCS: 36415 ×2; 71045; 80053 ×2; 82948 ×2; 85025 ×2; 85610; 85730; 86704; 86706; 86850; 86900; 86920; 87340; 90970; 99284; G0378 ×2; J1644; J7030; J7050; P9016; U0002

== ENCOUNTER 2022-05-06 11:19 | Inpatient (IN) | payer MEDICARE, OTHER ==
[~2022-05-06] VITALS: Ht 180.3 cm; Wt 127.0 kg
[2022-05-06 12:12] LABS: BASOPHILS % 0.4 % (0.0-1.0); EOSINOPHILS # (AUTO) 0.2 (0.0-0.4); EOSINOPHILS % 2.2 % (0.0-6.0); HEMOGLOBIN 11.2 g/dL (12.0-16.0); LYMPHOCYTES # (AUTO) 1.1 (1.0-3.2); LYMPHOCYTES % 11.8 % (18.0-39.1); MEAN CORPUSCULAR HEMOGLOBIN 30.5 pg (28-32); MEAN CORPUSCULAR HGB CONC 30.3 g/dL (31-35); MEAN CORPUSCULAR VOLUME 100.8 fL (81-99); MONOCYTES # (AUTO) 0.6 (0.2-0.8); MONOCYTES % 6.2 % (4.4-11.3); NEUTROPHILS # (AUTO) 7.2 (2.1-6.9); NEUTROPHILS % 78.7 % (38.7-80.0); PLATELET COUNT 285 x10e3/uL (140-360); RED BLOOD COUNT 3.67 x10e6/uL (3.6-5.1); RED CELL DISTRIBUTION WIDTH 17.6 % (11.7-14.4)
[2022-05-06 12:25] LABS: INR 1.26; PROTHROMBIN TIME 16.9 seconds (11.9-14.5)
[2022-05-06 12:44] LABS: ALANINE AMINOTRANSFERASE 13 IU/L (0-55); ALBUMIN 3.2 g/dL (3.5-5.0); ALBUMIN/GLOBULIN RATIO 0.6 (0.8-2.0); ALKALINE PHOSPHATASE 75 IU/L (40-150); ANION GAP 22.8 mmol/L (8-16); BLOOD UREA NITROGEN 34 mg/dL (7-26); BUN/CREATININE RATIO 6 (6-25); CALCIUM 8.7 mg/dL (8.4-10.2); CARBON DIOXIDE 22 mmol/L (22-29); CHLORIDE 97 mmol/L (98-107); GLUCOSE 228 mg/dL (74-118); POTASSIUM 4.8 mmol/L (3.5-5.1); SODIUM 137 mmol/L (136-145)
[2022-05-06] MEDS ORDERED: ONDANSETRON HCL INJ 2MG/ML 2ML 2 MG/ML VIAL IV PRN (13:00)
[2022-05-06] MEDS ORDERED: SODIUM CHLORIDE FLUSH 10 ML SYR INJ PRN (13:00)
[2022-05-06 13:03] LABS: MAGNESIUM 2.1 MG/DL (1.3-2.1)
[2022-05-06] MEDS ORDERED: DEXTROSE 50% SYRINGE 50 ML IV PRN ×2 (13:45→16:00)
[2022-05-06] MEDS ORDERED: HEPARIN SOD (PORCINE) 1000 UNIT/ML SDV ONE (14:51)
[2022-05-06] MEDS ORDERED: SODIUM CHLORIDE 0.9% 1000ML 0 ML ONE (15:20)
[2022-05-06 15:40] VITALS: BP 161/102
[2022-05-06] MEDS ORDERED: ACETAMINOPHEN 325 MG TAB PO PRN (16:00)
[2022-05-06] MEDS ORDERED: SODIUM CHLORIDE 0.9% 1000ML 2,000 ML ONE (16:11)
[2022-05-06] MEDS ORDERED: METOPROLOL TART50 MG PO (16:21)
[2022-05-06] MEDS ORDERED: vitamin d3 PO (16:21)
[2022-05-06] MEDS ORDERED: ELIQUIS2.5 MG PO (16:21)
[2022-05-06] MEDS ORDERED: [UNRECOGNIZED DRUG - OTHER] PO (16:21)
[2022-05-06] MEDS ORDERED: MULTI-VITAMIN1 EACH PO (16:21)
[2022-05-06] MEDS ORDERED: HYDRALAZINE HCL50 MG PO (16:21)
[2022-05-06] MEDS ORDERED: FISH OIL 1,001000 M1 PO (16:21)
[2022-05-06] MEDS ORDERED: PROAIR HFA INH8.5 GM INH (16:21)
[2022-05-06] MEDS ORDERED: ATORVASTATIN CA20 MG PO (16:21)
[2022-05-06] MEDS ORDERED: PRORENAL PO (16:21)
[2022-05-06] MEDS ORDERED: PROTONIX20 MG PO (16:21)
[2022-05-06] MEDS ORDERED: FERROUS SULFAT324 MG PO (16:21)
[2022-05-06] MEDS: INSULIN LISPRO 100 UNIT/1 ML 3ML VIAL SQ SCH ×2 (16:30→21:00)
[2022-05-06] MEDS ORDERED: INSULIN REGULAR, HUMAN 100 UNIT/1 ML SQ SCH (16:30)
[2022-05-06 16:46] VITALS: BP 161/102
[2022-05-06] MEDS ORDERED: SODIUM CHLORIDE 0.9% 1000ML 2,000 ML IV PRN (17:30)
[2022-05-06] MEDS ORDERED: HEPARIN SOD (PORCINE) 1000 UNIT/ML SDV IV PRN (17:30)
[2022-05-06] MEDS ORDERED: HYDRALAZINE HCL 20 MG/ML VIAL IV PRN (18:15)
[2022-05-06] MEDS ORDERED: ALBUTEROL/IPRATROPIUM 3 ML NEB NEB PRN (18:15)
[2022-05-06 20:00] VITALS: BP 161/102
[2022-05-06 20:18] VITALS: BP 156/92
[2022-05-06] MEDS: ATORVASTATIN 40 MG TAB PO SCH (23:33)
[2022-05-07] VITALS (7 sets, daily range): BP systolic 100–135; BP diastolic 63–90
[2022-05-07 07:11] LABS: BASOPHILS % 0.2 % (0.0-1.0); EOSINOPHILS # (AUTO) 0.2 (0.0-0.4); HEMATOCRIT 33.6 % (34.2-44.1); HEMOGLOBIN 10.3 g/dL (12.0-16.0); LYMPHOCYTES # (AUTO) 0.8 (1.0-3.2); LYMPHOCYTES % 9.5 % (18.0-39.1); MEAN CORPUSCULAR HEMOGLOBIN 30.4 pg (28-32); MEAN CORPUSCULAR HGB CONC 30.7 g/dL (31-35); MEAN CORPUSCULAR VOLUME 99.1 fL (81-99); MONOCYTES # (AUTO) 0.5 (0.2-0.8); MONOCYTES % 6.3 % (4.4-11.3); NEUTROPHILS % 81.5 % (38.7-80.0); PLATELET COUNT 253 x10e3/uL (140-360); RED BLOOD COUNT 3.39 x10e6/uL (3.6-5.1); RED CELL DISTRIBUTION WIDTH 17.2 % (11.7-14.4)
[2022-05-07] MEDS: INSULIN LISPRO 100 UNIT/1 ML 3ML VIAL SQ SCH ×4 (07:30→20:30)
[2022-05-07 07:46] LABS: ANION GAP 18.9 mmol/L (8-16); CALCIUM 8.7 mg/dL (8.4-10.2); CREATININE, SERUM 4.53 mg/dL (0.57-1.11); POTASSIUM 3.9 mmol/L (3.5-5.1)
[2022-05-07] MEDS: APIXAB 2.5 MG TABLET PO SCH ×2 (09:31→16:34)
[2022-05-07] MEDS: DOCUSATE SODIUM 100 MG CAP PO SCH (09:31)
[2022-05-07] MEDS: MULTIVITAMINS/MINERALS TAB PO SCH (09:31)
[2022-05-07] MEDS: SENNOSIDES 8.6 MG TAB PO SCH (09:32)
[2022-05-07] MEDS: PANTOPRAZOLE SOD 40 MG TABEC PO SCH (09:32)
[2022-05-07] MEDS: METOPROLOL TARTRATE 50 MG TAB PO SCH ×2 (09:32→16:34)
[2022-05-07] MEDS: ATORVASTATIN 40 MG TAB PO SCH (20:30)
[2022-05-08] VITALS (8 sets, daily range): BP systolic 103–134; BP diastolic 73–97
[2022-05-08] MEDS: INSULIN LISPRO 100 UNIT/1 ML 3ML VIAL SQ SCH ×4 (07:30→20:00)
[2022-05-08] MEDS: METOPROLOL TARTRATE 50 MG TAB PO SCH ×2 (08:33→17:13)
[2022-05-08] MEDS: APIXAB 2.5 MG TABLET PO SCH ×2 (08:33→17:13)
[2022-05-08] MEDS: SENNOSIDES 8.6 MG TAB PO SCH (08:33)
[2022-05-08] MEDS: PANTOPRAZOLE SOD 40 MG TABEC PO SCH (08:33)
[2022-05-08] MEDS: MULTIVITAMINS/MINERALS TAB PO SCH (08:33)
[2022-05-08] MEDS: DOCUSATE SODIUM 100 MG CAP PO SCH (08:34)
[2022-05-08] MEDS: ATORVASTATIN 40 MG TAB PO SCH (20:20)
[2022-05-09] VITALS: BP 115/71
[2022-05-09 04:00] VITALS: BP 134/96
[2022-05-09 06:05] LABS: BASOPHILS # (AUTO) 0.1 (0.0-0.1); BASOPHILS % 0.7 % (0.0-1.0); EOSINOPHILS # (AUTO) 0.3 (0.0-0.4); EOSINOPHILS % 3.2 % (0.0-6.0); HEMATOCRIT 37.6 % (34.2-44.1); HEMOGLOBIN 10.8 g/dL (12.0-16.0); LYMPHOCYTES # (AUTO) 1.2 (1.0-3.2); LYMPHOCYTES % 14.5 % (18.0-39.1); MEAN CORPUSCULAR HEMOGLOBIN 30.5 pg (28-32); MEAN CORPUSCULAR HGB CONC 28.7 g/dL (31-35); MEAN CORPUSCULAR VOLUME 106.2 fL (81-99); MONOCYTES # (AUTO) 0.6 (0.2-0.8); MONOCYTES % 7.6 % (4.4-11.3); NEUTROPHILS # (AUTO) 6.1 (2.1-6.9); NEUTROPHILS % 73.4 % (38.7-80.0); PLATELET COUNT 252 x10e3/uL (140-360); RED BLOOD COUNT 3.54 x10e6/uL (3.6-5.1); RED CELL DISTRIBUTION WIDTH 17.5 % (11.7-14.4)
[2022-05-09 06:27] LABS: ANION GAP 17.9 mmol/L (8-16); CALCIUM 8.3 mg/dL (8.4-10.2); CREATININE, SERUM 7.1 mg/dL (0.57-1.11); POTASSIUM 3.9 mmol/L (3.5-5.1)
[2022-05-09 06:50] LABS: ALBUMIN 2.9 g/dL (3.5-5.0); ALBUMIN/GLOBULIN RATIO 0.7 (0.8-2.0)
[2022-05-09 07:56] LABS: FERRITIN 492.25 ng/mL (4.63-204.00)
[2022-05-09 08:16] VITALS: BP_SYST 102; BP_SYST 127; BP_DIAS 62; BP_DIAS 85
[2022-05-09] MEDS: INSULIN LISPRO 100 UNIT/1 ML 3ML VIAL SQ SCH ×4 (08:30→21:00)
[2022-05-09 08:38] LABS: HYPOCHROMASIA MODERATE; PLATELET ESTIMATE ADEQUATE; PLATELET MORPHOLOGY COMMENT NORMAL; RBC MORPHOLOGY COMMENT ABNORMAL
[2022-05-09] MEDS: PANTOPRAZOLE SOD 40 MG TABEC PO SCH (09:00)
[2022-05-09] MEDS: DOCUSATE SODIUM 100 MG CAP PO SCH (09:00)
[2022-05-09] MEDS: METOPROLOL TARTRATE 50 MG TAB PO SCH ×2 (09:00→17:00)
[2022-05-09] MEDS: SENNOSIDES 8.6 MG TAB PO SCH (09:00)
[2022-05-09] MEDS: APIXAB 2.5 MG TABLET PO SCH (09:00)
[2022-05-09] MEDS: MULTIVITAMINS/MINERALS TAB PO SCH (09:02)
[2022-05-09] MEDS ORDERED: ONDANSETRON ODT4 MG PO (11:25)
[2022-05-09 11:52] VITALS: BP 121/95
[2022-05-09] MEDS ORDERED: ONDANSETRON HCL 4 MG ORAL DISINTEGRATING TAB PO PRN (15:45)
[2022-05-09 15:56] VITALS: BP 108/86
[2022-05-09 20:00] VITALS: BP 162/84
[2022-05-09] MEDS: ATORVASTATIN 40 MG TAB PO SCH (21:07)
[2022-05-10] VITALS: BP 105/78
[2022-05-10 04:00] VITALS: BP 106/85
[2022-05-10 04:53] LABS: BASOPHILS % 0.3 % (0.0-1.0); EOSINOPHILS # (AUTO) 0.2 (0.0-0.4); EOSINOPHILS % 2.4 % (0.0-6.0); HEMATOCRIT 34.3 % (34.2-44.1); HEMOGLOBIN 10.7 g/dL (12.0-16.0); LYMPHOCYTES # (AUTO) 1.1 (1.0-3.2); MEAN CORPUSCULAR HEMOGLOBIN 30.4 pg (28-32); MEAN CORPUSCULAR HGB CONC 31.2 g/dL (31-35); MEAN CORPUSCULAR VOLUME 97.4 fL (81-99); MONOCYTES # (AUTO) 0.6 (0.2-0.8); MONOCYTES % 6.7 % (4.4-11.3); NEUTROPHILS # (AUTO) 7.6 (2.1-6.9); NEUTROPHILS % 79.1 % (38.7-80.0); PLATELET COUNT 243 x10e3/uL (140-360); RED BLOOD COUNT 3.52 x10e6/uL (3.6-5.1); RED CELL DISTRIBUTION WIDTH 17.2 % (11.7-14.4)
[2022-05-10 05:03] LABS: INR 1.31; PROTHROMBIN TIME 17.4 seconds (11.9-14.5)
[2022-05-10 05:15] LABS: ALBUMIN/GLOBULIN RATIO 0.7 (0.8-2.0); ANION GAP 17.7 mmol/L (8-16); CALCIUM 8.6 mg/dL (8.4-10.2); CREATININE, SERUM 4.79 mg/dL (0.57-1.11); MAGNESIUM 1.8 MG/DL (1.3-2.1); POTASSIUM 3.7 mmol/L (3.5-5.1)
[2022-05-10] MEDS: INSULIN LISPRO 100 UNIT/1 ML 3ML VIAL SQ SCH ×3 (07:30→16:30)
[2022-05-10 07:58] VITALS: BP 100/80
[2022-05-10 08:06] VITALS: BP 100/80
[2022-05-10] MEDS ORDERED: ONDANSETRON HCL INJ 2MG/ML 2ML 2 MG/ML VIAL IV STA (08:08)
[2022-05-10] MEDS: DOCUSATE SODIUM 100 MG CAP PO SCH (08:31)
[2022-05-10] MEDS: SENNOSIDES 8.6 MG TAB PO SCH (08:31)
[2022-05-10] MEDS ORDERED: SODIUM CHLORIDE 0.9% 250ML 250 ML ONE ×2 (11:03→11:36)
[2022-05-10] MEDS ORDERED: MIDAZOLAM HCL 2 MG/2 ML VIAL ONE (11:36)
[2022-05-10] MEDS ORDERED: FENTANYL CITRATE/PF 100MCG/2 ML INJ ONE (11:36)
[2022-05-10 12:08] VITALS: BP 114/80
[2022-05-10] MEDS ORDERED: HEPARIN SOD (PORCINE) 1000 UNIT/ML SDV ONE (12:29)
[2022-05-10] MEDS: PANTOPRAZOLE SOD 40 MG TABEC PO SCH (14:09)
[2022-05-10] MEDS: MULTIVITAMINS/MINERALS TAB PO SCH (14:09)
[2022-05-10] MEDS: METOPROLOL TARTRATE 50 MG TAB PO SCH ×2 (14:14→16:17)
[2022-05-10 15:41] VITALS: BP 99/76
== END 2022-05-10 18:21 | disposition home or self-care (01) | DRG 314 ==
LOC: ER 11:22 → ERHOLD 13:00 → MED/SURG2 15:49
PROVIDERS: ADMIT Internal Medicine; ATTEND Internal Medicine
PROC: 02HV33Z Insertion of Infusion Device into Superior Vena Cava, Percutaneous Approach (ICD-10-PCS; principal; 2022-05-06)
PROC: B5181ZA Fluoroscopy of Superior Vena Cava using Low Osmolar Contrast, Guidance (ICD-10-PCS; 2022-05-06)
PROC: 5A1D70Z Performance of Urinary Filtration, Intermittent, Less than 6 Hours Per Day (ICD-10-PCS; 2022-05-06)
PROC: 3E03329 Introduction of Other Anti-infective into Peripheral Vein, Percutaneous Approach (ICD-10-PCS; 2022-05-06)
PROC: 02PY33Z Removal of Infusion Device from Great Vessel, Percutaneous Approach (ICD-10-PCS; 2022-05-10)
PROC: 02HV33Z Insertion of Infusion Device into Superior Vena Cava, Percutaneous Approach (ICD-10-PCS; 2022-05-10)
PROC: 0JH63XZ Insertion of Tunneled Vascular Access Device into Chest Subcutaneous Tissue and Fascia, Percutaneous Approach (ICD-10-PCS; 2022-05-10)
PROC: B5181ZA Fluoroscopy of Superior Vena Cava using Low Osmolar Contrast, Guidance (ICD-10-PCS; 2022-05-10)
DX: T80.211A Bloodstream infection due to central venous catheter, initial encounter (principal); A41.89 Other specified sepsis; N18.6 End stage renal disease; R65.20 Severe sepsis without septic shock; I13.11 Hypertensive heart and chronic kidney disease without heart failure, with stage 5 chronic kidney disease, or end stage renal disease; E87.20 Acidosis, unspecified; N39.0 Urinary tract infection, site not specified; E11.22 Type 2 diabetes mellitus with diabetic chronic kidney disease; I48.0 Paroxysmal atrial fibrillation; I25.10 Atherosclerotic heart disease of native coronary artery without angina pectoris; K21.9 Gastro-esophageal reflux disease without esophagitis; E78.5 Hyperlipidemia, unspecified; E66.01 Morbid (severe) obesity due to excess calories; F32.A Depression, unspecified; I25.2 Old myocardial infarction; Z99.2 Dependence on renal dialysis; Z79.01 Long term (current) use of anticoagulants; Z95.5 Presence of coronary angioplasty implant and graft; Z86.73 Personal history of transient ischemic attack (TIA), and cerebral infarction without residual deficits; Z86.718 Personal history of other venous thrombosis and embolism; Z88.5 Allergy status to narcotic agent; Z88.7 Allergy status to serum and vaccine; Z88.8 Allergy status to other drugs, medicaments and biological substances; Z20.822 Contact with and (suspected) exposure to COVID-19; F41.9 Anxiety disorder, unspecified; Z68.39 Body mass index [BMI] 39.0-39.9, adult; D53.9 Nutritional anemia, unspecified
CPT/HCPCS: 0223U; 36415; 36556; 36558; 36589; 71045; 74470; 76937; 77001; 80048; 80053; 82607; 82728; 82746; 82948; 83036; 83540; 83605; 83735; 84466; 84484; 85025; 85610; 85730; 86704; 86706; 87040; 87070; 87186; 87340; 93005; 94640; 94799; 99283; C1769; C1892; J0696; J1644; J2250; J2405; J3010; J7030; J7050; Q0162

== ENCOUNTER 2022-10-13 12:18 | Emergency (ER) | payer MEDICARE, OTHER ==
[~2022-10-13] VITALS: Ht 180.3 cm; Wt 127.0 kg
[~2022-10-13 12:18] MED LIST changes: +ATORVASTATIN CA20 MG PO; +ELIQUIS2.5 MG PO; +FERROUS SULFAT324 MG PO; +FISH OIL 1,001000 M1 PO; +HYDRALAZINE HCL50 MG PO; +METOPROLOL TART50 MG PO; +MULTI-VITAMIN1 EACH PO; +PROAIR HFA INH8.5 GM INH; +PRORENAL PO; +PROTONIX20 MG PO; +[UNRECOGNIZED DRUG - OTHER] PO; +vitamin d3 PO
[2022-10-13 13:12] LABS: ANION GAP 21.3 mmol/L (8-16); CALCIUM 8.7 mg/dL (8.4-10.2); CREATININE, SERUM 7.89 mg/dL (0.57-1.11); POTASSIUM 5.3 mmol/L (3.5-5.1)
[2022-10-13 14:21] VITALS: BP 146/71
== END 2022-10-13 14:22 | disposition home or self-care (01) ==
LOC: ER 12:26
DX: E87.5 Hyperkalemia (principal); I12.0 Hypertensive chronic kidney disease with stage 5 chronic kidney disease or end stage renal disease; E11.22 Type 2 diabetes mellitus with diabetic chronic kidney disease; E11.65 Type 2 diabetes mellitus with hyperglycemia; N18.6 End stage renal disease; Z99.2 Dependence on renal dialysis; E78.5 Hyperlipidemia, unspecified; K21.9 Gastro-esophageal reflux disease without esophagitis; I50.9 Heart failure, unspecified; F32.A Depression, unspecified; I25.2 Old myocardial infarction; I69.351 Hemiplegia and hemiparesis following cerebral infarction affecting right dominant side
CPT/HCPCS: 36415; 80048; 93005; 99283

== ENCOUNTER 2022-11-05 14:47 | Observation (INO) | payer MEDICARE, OTHER ==
[~2022-11-05] VITALS: Ht 180.3 cm; Wt 127.0 kg
[2022-11-05 15:45] LABS: BASOPHILS % 0.5 % (0.0-1.0); EOSINOPHILS # (AUTO) 0.4 (0.0-0.4); EOSINOPHILS % 4.7 % (0.0-6.0); HEMATOCRIT 31.6 % (34.2-44.1); LYMPHOCYTES % 11.7 % (18.0-39.1); MEAN CORPUSCULAR HEMOGLOBIN 32.2 pg (28-32); MEAN CORPUSCULAR HGB CONC 31.6 g/dL (31-35); MEAN CORPUSCULAR VOLUME 101.6 fL (81-99); MONOCYTES # (AUTO) 0.5 (0.2-0.8); MONOCYTES % 5.7 % (4.4-11.3); NEUTROPHILS # (AUTO) 6.7 (2.1-6.9); PLATELET COUNT 254 x10e3/uL (140-360); RED BLOOD COUNT 3.11 x10e6/uL (3.6-5.1); RED CELL DISTRIBUTION WIDTH 15.3 % (11.7-14.4)
[2022-11-05 16:03] LABS: INR 1.41; PROTHROMBIN TIME 17.8 seconds (11.9-14.5)
[2022-11-05 16:04] LABS: PARTIAL THROMBOPLASTIN TIME 47.8 seconds (23.8-35.5)
[2022-11-05 16:10] LABS: ALANINE AMINOTRANSFERASE 18 IU/L (0-55); ALBUMIN 3.3 g/dL (3.5-5.0); ALBUMIN/GLOBULIN RATIO 0.7 (0.8-2.0); ALKALINE PHOSPHATASE 93 IU/L (40-150); ANION GAP 20.8 mmol/L (8-16); BLOOD UREA NITROGEN 87 mg/dL (7-26); BUN/CREATININE RATIO 10 (6-25); CARBON DIOXIDE 19 mmol/L (22-29); CHLORIDE 106 mmol/L (98-107); CREATININE, SERUM 8.74 mg/dL (0.57-1.11); GLUCOSE 150 mg/dL (74-118); MAGNESIUM 2.3 MG/DL (1.3-2.1); POTASSIUM 5.8 mmol/L (3.5-5.1); SODIUM 140 mmol/L (136-145)
[2022-11-05] MEDS ORDERED: SOD POLYSTYRENE SULFONATE SUSP 15 GM/60 ML BTL PO ONE (18:15)
[2022-11-05] MEDS ORDERED: DEXTROSE 50% SYRINGE 50 ML IV PRN (18:15)
[2022-11-05] MEDS ORDERED: ONDANSETRON HCL INJ 2MG/ML 2ML 2 MG/ML VIAL IV PRN (18:15)
[2022-11-05] MEDS: INSULIN LISPRO 100 UNIT/1 ML 3ML VIAL SQ SCH (21:00)
[2022-11-05] MEDS ORDERED: NEURONTIN100 MG PO (21:06)
[2022-11-05] MEDS ORDERED: BUMETANIDE2 MG PO (21:06)
[2022-11-05] MEDS ORDERED: CALCIUM ACETAT667 MG PO (21:08)
[2022-11-05] MEDS ORDERED: VENTOLIN HFA18 GM INH (21:13)
[2022-11-05 21:17] VITALS: BP 152/65
[2022-11-05 22:29] VITALS: BP 152/65
[2022-11-05 23:04] VITALS: BP 152/65
[2022-11-06] VITALS: BP 149/97
[2022-11-06 01:53] LABS: CREATINE KINASE MB 1.9 ng/mL (0-5.0)
[2022-11-06 04:00] VITALS: BP 145/83
[2022-11-06 05:11] LABS: BASOPHILS # (AUTO) 0.1 (0.0-0.1); BASOPHILS % 0.6 % (0.0-1.0); EOSINOPHILS # (AUTO) 0.4 (0.0-0.4); EOSINOPHILS % 5.3 % (0.0-6.0); HEMATOCRIT 29.2 % (34.2-44.1); LYMPHOCYTES % 11.8 % (18.0-39.1); MEAN CORPUSCULAR HEMOGLOBIN 32.1 pg (28-32); MEAN CORPUSCULAR HGB CONC 30.8 g/dL (31-35); MEAN CORPUSCULAR VOLUME 104.3 fL (81-99); MONOCYTES # (AUTO) 0.6 (0.2-0.8); MONOCYTES % 7.4 % (4.4-11.3); NEUTROPHILS % 73.7 % (38.7-80.0); PLATELET COUNT 227 x10e3/uL (140-360); RED CELL DISTRIBUTION WIDTH 15.1 % (11.7-14.4)
[2022-11-06 05:35] LABS: ALBUMIN/GLOBULIN RATIO 0.8 (0.8-2.0); ANION GAP 19.8 mmol/L (8-16); CALCIUM 8.6 mg/dL (8.4-10.2); CREATINE KINASE 264 IU/L (29-168); CREATININE, SERUM 8.67 mg/dL (0.57-1.11); POTASSIUM 4.8 mmol/L (3.5-5.1)
[2022-11-06] MEDS ORDERED: ALBUTEROL SULFATE HFA 8GM INHALATION AEROSOL INH PRN (07:30)
[2022-11-06] MEDS ORDERED: HYDRALAZINE HCL 25 MG TAB PO PRN (07:30)
[2022-11-06] MEDS: INSULIN LISPRO 100 UNIT/1 ML 3ML VIAL SQ SCH ×2 (07:30→11:30)
[2022-11-06 08:34] VITALS: BP 118/70
[2022-11-06] MEDS ORDERED: OMEGA 3 POLYUNSAT FATTY ACIDS 1000 MG SOFTGEL PO SCH (09:00)
[2022-11-06] MEDS ORDERED: BUMETANIDE 1 MG TAB PO SCH (09:00)
[2022-11-06] MEDS ORDERED: PANTOPRAZOLE SOD 40 MG TABEC PO SCH (09:00)
[2022-11-06] MEDS ORDERED: ACETAMINOPHEN 325 MG TAB PO PRN (09:00)
[2022-11-06] MEDS ORDERED: METOPROLOL TARTRATE 50 MG TAB PO SCH (09:00)
[2022-11-06] MEDS ORDERED: GABAPENTIN 100 MG CAP PO SCH (09:00)
[2022-11-06] MEDS ORDERED: APIXAB 2.5 MG TABLET PO SCH (09:00)
[2022-11-06] MEDS ORDERED: CALCIUM ACETATE 667 MG GELCAP PO SCH (09:00)
[2022-11-06] MEDS ORDERED: SENNOSIDES 8.6 MG TAB PO SCH (09:00)
[2022-11-06] MEDS ORDERED: DOCUSATE SODIUM 100 MG CAP PO SCH (09:00)
[2022-11-06 09:11] VITALS: BP 118/70
[2022-11-06] MEDS ORDERED: AZITHROMYCIN 250 MG TAB PO SCH (10:00)
[2022-11-06] MEDS ORDERED: HEPARIN SOD (PORCINE) 1000 UNIT/ML SDV IV PRN (10:15)
[2022-11-06] MEDS ORDERED: SODIUM CHLORIDE 0.9% 1000ML 2,000 ML ONE (10:17)
[2022-11-06 12:12] VITALS: BP 171/98
[2022-11-06 12:14] LABS: CREATINE KINASE 228 IU/L (29-168)
[2022-11-06 16:47] VITALS: BP 134/79
[2022-11-06] MEDS ORDERED: ZITHROMAX250 MG PO (17:08)
[2022-11-06] MEDS ORDERED: ATORVASTATIN 40 MG TAB PO SCH (21:00)
== END 2022-11-06 18:27 | disposition home or self-care (01) ==
LOC: ER 15:06 → ERHOLD 18:12 → MED/SURG 20:37
PROVIDERS: ADMIT Internal Medicine; ATTEND Internal Medicine
DX: E87.70 Fluid overload, unspecified (principal); E11.22 Type 2 diabetes mellitus with diabetic chronic kidney disease; I13.2 Hypertensive heart and chronic kidney disease with heart failure and with stage 5 chronic kidney disease, or end stage renal disease; N18.6 End stage renal disease; I50.22 Chronic systolic (congestive) heart failure; Z99.2 Dependence on renal dialysis; E66.9 Obesity, unspecified; I48.0 Paroxysmal atrial fibrillation; Z79.02 Long term (current) use of antithrombotics/antiplatelets; I25.10 Atherosclerotic heart disease of native coronary artery without angina pectoris; F32.A Depression, unspecified; F41.9 Anxiety disorder, unspecified; D63.1 Anemia in chronic kidney disease; Z91.158 Patient's noncompliance with renal dialysis for other reason; J40 Bronchitis, not specified as acute or chronic; E87.5 Hyperkalemia; J81.1 Chronic pulmonary edema; I47.20 Ventricular tachycardia, unspecified; I25.2 Old myocardial infarction; E78.5 Hyperlipidemia, unspecified; K21.9 Gastro-esophageal reflux disease without esophagitis; Z20.822 Contact with and (suspected) exposure to COVID-19; Z88.6 Allergy status to analgesic agent; Z88.8 Allergy status to other drugs, medicaments and biological substances; Z88.7 Allergy status to serum and vaccine; Z79.899 Other long term (current) drug therapy; Z68.39 Body mass index [BMI] 39.0-39.9, adult; Z86.73 Personal history of transient ischemic attack (TIA), and cerebral infarction without residual deficits; Z86.718 Personal history of other venous thrombosis and embolism; Z98.61 Coronary angioplasty status
CPT/HCPCS: 36415; 71045 ×2; 80053 ×2; 82550 ×2; 82553 ×2; 82948; 83735; 84484 ×2; 85025 ×2; 85610; 85730; 86706; 86707; 93005; 94799 ×2; 99284; G0257; G0378 ×2; J0696; J1644; J7030; S0164; U0002; 90962

== ENCOUNTER 2022-12-25 19:28 | Observation (INO) | payer MEDICARE, OTHER ==
[~2022-12-25] VITALS: Ht 332.7 cm; Wt 127.0 kg
[~2022-12-25 19:28] MED LIST changes: +BUMETANIDE2 MG PO; +CALCIUM ACETAT667 MG PO; +NEURONTIN100 MG PO; +VENTOLIN HFA18 GM INH; +ZITHROMAX250 MG PO
[2022-12-25 20:14] LABS: BASOPHILS % 0.5 % (0.0-1.0); EOSINOPHILS # (AUTO) 0.4 (0.0-0.4); EOSINOPHILS % 5.3 % (0.0-6.0); HEMATOCRIT 32.6 % (34.2-44.1); HEMOGLOBIN 10.2 g/dL (12.0-16.0); LYMPHOCYTES # (AUTO) 0.8 (1.0-3.2); LYMPHOCYTES % 10.3 % (18.0-39.1); MEAN CORPUSCULAR HEMOGLOBIN 32.8 pg (28-32); MEAN CORPUSCULAR HGB CONC 31.3 g/dL (31-35); MEAN CORPUSCULAR VOLUME 104.8 fL (81-99); MONOCYTES # (AUTO) 0.4 (0.2-0.8); MONOCYTES % 5.1 % (4.4-11.3); NEUTROPHILS # (AUTO) 5.9 (2.1-6.9); NEUTROPHILS % 78.3 % (38.7-80.0); PLATELET COUNT 198 x10e3/uL (140-360); RED BLOOD COUNT 3.11 x10e6/uL (3.6-5.1); RED CELL DISTRIBUTION WIDTH 14.4 % (11.7-14.4)
[2022-12-25 20:35] LABS: ANION GAP 20.9 mmol/L (8-16); CREATININE, SERUM 8.47 mg/dL (0.57-1.11)
[2022-12-25 20:36] LABS: POTASSIUM 5.9 mmol/L (3.5-5.1)
[2022-12-25] MEDS ORDERED: CALCIUM CHLORIDE 10% 1.36 MEQ/ML 10ML SYR IV STA (20:42)
[2022-12-25] MEDS ORDERED: SODIUM BICARBONATE 8.4% INJ 50 ML SYR IV STA (20:42)
[2022-12-25] MEDS ORDERED: DEXTROSE 50% SYRINGE 50 ML IV STA (20:42)
[2022-12-25] MEDS ORDERED: SOD POLYSTYRENE SULFONATE SUSP 15 GM/60 ML BTL PO ONE (20:45)
[2022-12-25] MEDS ORDERED: INSULIN REGULAR, HUMAN 100 UNIT/1 ML IV ONE ×2 (20:45→21:00)
[2022-12-25] MEDS ORDERED: DEXTROSE 50% SYRINGE 50 ML IV PRN (21:00)
[2022-12-25] MEDS ORDERED: SODIUM CHLORIDE FLUSH 10 ML SYR INJ PRN (21:00)
[2022-12-25] MEDS: INSULIN REGULAR, HUMAN 100 UNIT/1 ML SQ SCH (21:00)
[2022-12-25] MEDS ORDERED: CALCIUM GLUC 1 G/50 ML NACL 0 ML IV ONE (21:11)
[2022-12-25] MEDS ORDERED: SODIUM CHLORIDE 0.9% 100 ML ONE (21:13)
[2022-12-25 22:23] VITALS: BP 156/80; PULSE 65; RESP 17; TEMP 98; O2SAT 99
[2022-12-26] VITALS (7 sets, daily range): BP systolic 124–158; BP diastolic 56–89; PULSE 62–65; RESP 17–21; TEMP 97.4–98.3; O2SAT 93–96
[2022-12-26] MEDS: ACETAMINOPHEN 325 MG TAB PO PRN ×2 (03:21→15:57)
[2022-12-26 05:49] LABS: BASOPHILS % 0.6 % (0.0-1.0); EOSINOPHILS # (AUTO) 0.4 (0.0-0.4); EOSINOPHILS % 5.6 % (0.0-6.0); HEMATOCRIT 30.2 % (34.2-44.1); HEMOGLOBIN 9.6 g/dL (12.0-16.0); LYMPHOCYTES # (AUTO) 0.8 (1.0-3.2); LYMPHOCYTES % 11.3 % (18.0-39.1); MEAN CORPUSCULAR HEMOGLOBIN 33.2 pg (28-32); MEAN CORPUSCULAR HGB CONC 31.8 g/dL (31-35); MEAN CORPUSCULAR VOLUME 104.5 fL (81-99); MONOCYTES # (AUTO) 0.4 (0.2-0.8); MONOCYTES % 6.2 % (4.4-11.3); NEUTROPHILS # (AUTO) 5.4 (2.1-6.9); NEUTROPHILS % 75.7 % (38.7-80.0); PLATELET COUNT 164 x10e3/uL (140-360); RED BLOOD COUNT 2.89 x10e6/uL (3.6-5.1); RED CELL DISTRIBUTION WIDTH 14.1 % (11.7-14.4)
[2022-12-26 06:18] LABS: ANION GAP 18.7 mmol/L (8-16); CREATININE, SERUM 8.5 mg/dL (0.57-1.11); POTASSIUM 4.7 mmol/L (3.5-5.1)
[2022-12-26] MEDS: INSULIN REGULAR, HUMAN 100 UNIT/1 ML SQ SCH ×4 (07:30→19:03)
[2022-12-26] MEDS ORDERED: SENNA-S TABLET PO SCH (11:00)
[2022-12-26] MEDS ORDERED: SODIUM CHLORIDE 0.9% 1000ML 1,000 ML ONE (14:58)
[2022-12-26] MEDS ORDERED: HEPARIN SOD (PORCINE) 1000 UNIT/ML SDV IV PRN (16:00)
[2022-12-26] MEDS ORDERED: SODIUM CHLORIDE 0.9% 1000ML 2,000 ML IV PRN (16:00)
[2022-12-26] MEDS ORDERED: MANNITOL 25% 12.5GM/50 ML VIAL IV PRN (16:00)
[2022-12-26] MEDS ORDERED: MANNITOL 20 % 500 ML BAG IV ONE (16:03)
[2022-12-26] MEDS ORDERED: GABAPENTIN 100 MG CAP PO SCH (17:00)
[2022-12-26] MEDS ORDERED: METOPROLOL TARTRATE 50 MG TAB PO SCH (17:00)
[2022-12-26] MEDS: APIXAB 2.5 MG TABLET PO SCH ×2 (17:00→19:03)
[2022-12-26] MEDS ORDERED: ATORVASTATIN 20 MG TAB PO SCH (21:00)
== END 2022-12-26 20:15 | disposition home or self-care (01) ==
LOC: ER 19:32 → ERHOLD 21:00 → MED/SURG2 22:15
PROVIDERS: ADMIT Family Medicine Adult Medicine; ATTEND Family Medicine Adult Medicine
DX: E11.22 Type 2 diabetes mellitus with diabetic chronic kidney disease (principal); I13.2 Hypertensive heart and chronic kidney disease with heart failure and with stage 5 chronic kidney disease, or end stage renal disease; N18.6 End stage renal disease; Z99.2 Dependence on renal dialysis; Z91.158 Patient's noncompliance with renal dialysis for other reason; I50.22 Chronic systolic (congestive) heart failure; I48.0 Paroxysmal atrial fibrillation; E66.01 Morbid (severe) obesity due to excess calories; D53.9 Nutritional anemia, unspecified; Z86.73 Personal history of transient ischemic attack (TIA), and cerebral infarction without residual deficits; I25.10 Atherosclerotic heart disease of native coronary artery without angina pectoris; Z95.5 Presence of coronary angioplasty implant and graft; E87.5 Hyperkalemia; E87.70 Fluid overload, unspecified; E87.20 Acidosis, unspecified; E78.5 Hyperlipidemia, unspecified; Z86.718 Personal history of other venous thrombosis and embolism; I25.2 Old myocardial infarction; Z20.822 Contact with and (suspected) exposure to COVID-19; Z88.6 Allergy status to analgesic agent; Z88.7 Allergy status to serum and vaccine; Z88.8 Allergy status to other drugs, medicaments and biological substances; Z79.02 Long term (current) use of antithrombotics/antiplatelets; Z79.899 Other long term (current) drug therapy
CPT/HCPCS: 0223U; 36415 ×2; 80048 ×2; 82948; 85025 ×2; 93005; 99284; G0257; G0378 ×2; J1644; J7030; J7050; J7799

== ENCOUNTER 2023-06-05 15:25 | Emergency (ER) | payer MEDICARE, OTHER ==
[~2023-06-05] VITALS: Ht 180.3 cm; Wt 155.1 kg
[~2023-06-05 15:25] MED LIST changes: +ATORVASTATIN CA40 MG PO; +CLARISPRAY9.9 ML; +DEXAMETHASONE4 MG PO
[2023-06-05 15:30] VITALS: O2SAT 95
[2023-06-05 15:55] LABS: BASOPHILS # (AUTO) 0.1 (0.0-0.1); BASOPHILS % 0.4 % (0.0-1.0); EOSINOPHILS # (AUTO) 0.5 (0.0-0.4); EOSINOPHILS % 4.3 % (0.0-6.0); HEMATOCRIT 32.4 % (34.2-44.1); HEMOGLOBIN 10.7 g/dL (12.0-16.0); LYMPHOCYTES % 8.5 % (18.0-39.1); MEAN CORPUSCULAR HEMOGLOBIN 33.1 pg (28-32); MEAN CORPUSCULAR VOLUME 100.3 fL (81-99); MONOCYTES # (AUTO) 0.7 (0.2-0.8); MONOCYTES % 5.4 % (4.4-11.3); NEUTROPHILS # (AUTO) 9.8 (2.1-6.9); NEUTROPHILS % 79.9 % (38.7-80.0); PLATELET COUNT 186 x10e3/uL (140-360); RED BLOOD COUNT 3.23 x10e6/uL (3.6-5.1); RED CELL DISTRIBUTION WIDTH 14.3 % (11.7-14.4); WHITE BLOOD COUNT 12.22 x10e3/uL (4.8-10.8)
[2023-06-05 16:17] LABS: ALBUMIN 3.4 g/dL (3.5-5.0); ALBUMIN/GLOBULIN RATIO 0.8 (0.8-2.0); ANION GAP 18.7 mmol/L (8-16); CALCIUM 8.7 mg/dL (8.4-10.2); CREATININE, SERUM 5.47 mg/dL (0.57-1.11); MAGNESIUM 1.8 MG/DL (1.3-2.1); POTASSIUM 3.7 mmol/L (3.5-5.1)
== END 2023-06-05 17:36 | disposition home or self-care (01) ==
LOC: ER 15:30
DX: R42 Dizziness and giddiness (principal); I95.9 Hypotension, unspecified; Z20.822 Contact with and (suspected) exposure to COVID-19; R94.31 Abnormal electrocardiogram [ECG] [EKG]; N18.6 End stage renal disease; Z99.2 Dependence on renal dialysis; I50.9 Heart failure, unspecified; I48.91 Unspecified atrial fibrillation; E78.5 Hyperlipidemia, unspecified; K21.9 Gastro-esophageal reflux disease without esophagitis; I25.2 Old myocardial infarction; Z95.5 Presence of coronary angioplasty implant and graft; I69.351 Hemiplegia and hemiparesis following cerebral infarction affecting right dominant side
CPT/HCPCS: 36415; 71045; 80053; 82550; 83735; 84484; 85025; 93005; 99284; U0002

== ENCOUNTER 2024-05-03 11:37 | Inpatient (IN) | payer MEDICARE ==
[2024-05-03] VITALS (7 sets, daily range): BP systolic 113–156; BP diastolic 98–112; PULSE 84–94; RESP 16–21; TEMP 97.7–98.4; O2SAT 93–96
[~2024-05-03] VITALS: Ht 180.3 cm; Wt 155.1 kg
[2024-05-03 12:30] LABS: BASOPHILS # (AUTO) 0.1 (0.0-0.1); BASOPHILS % 0.5 % (0.0-1.0); EOSINOPHILS # (AUTO) 0.7 (0.0-0.4); EOSINOPHILS % 5.3 % (0.0-6.0); HEMATOCRIT 32.6 % (34.2-44.1); HEMOGLOBIN 10.4 g/dL (12.0-16.0); LYMPHOCYTES # (AUTO) 1.1 (1.0-3.2); MEAN CORPUSCULAR HGB CONC 31.9 g/dL (31-35); MONOCYTES # (AUTO) 0.7 (0.2-0.8); MONOCYTES % 5.3 % (4.4-11.3); NEUTROPHILS # (AUTO) 9.5 (2.1-6.9); NEUTROPHILS % 77.5 % (38.7-80.0); PLATELET COUNT 183 x10e3/uL (140-360); RED BLOOD COUNT 2.81 x10e6/uL (3.6-5.1); RED CELL DISTRIBUTION WIDTH 15.8 % (11.7-14.4); WHITE BLOOD COUNT 12.31 x10e3/uL (4.8-10.8)
[2024-05-03 12:49] LABS: INR 1.12; PARTIAL THROMBOPLASTIN TIME 32.2 seconds (23.8-35.5)
[2024-05-03 12:59] LABS: ALBUMIN 3.5 g/dL (3.5-5.0); ALBUMIN/GLOBULIN RATIO 0.8 (0.8-2.0); ANION GAP 24.9 mmol/L (8-16); BILIRUBIN,TOTAL 0.5 mg/dL (0.2-1.2); CALCIUM 7.9 mg/dL (8.4-10.2); CREATININE, SERUM 10.45 mg/dL (0.57-1.11); MAGNESIUM 2.2 MG/DL (1.3-2.1); POTASSIUM 4.9 mmol/L (3.5-5.1); TOTAL PROTEIN 8.1 g/dL (6.5-8.1)
[2024-05-03 13:05] LABS: TROPONIN I 0.015 ng/mL (0-0.300)
[2024-05-03] MEDS: FLUCONAZOLE 200 MG/100 ML 100 ML IV ONE (15:03)
[2024-05-03] MEDS ORDERED: Morphine 4mg INJECTION 4 MG/ML INJ IV STA (15:09)
[2024-05-03] MEDS: Vancomycin IV 1 GM in SODIUM CHLORIDE 0.9% 250ML 250 ML IV ONE (16:21)
[2024-05-03] MEDS: ONDANSETRON HCL INJ 2MG/ML 2ML 2 MG/ML VIAL IV STA (16:21)
[2024-05-03] MEDS: ACETAMINOPHEN 325 MG TAB PO ONE (16:25)
[2024-05-03 20:51] LABS: TROPONIN I 0.019 ng/mL (0-0.300)
[2024-05-03] MEDS: ONDANSETRON HCL INJ 2MG/ML 2ML 2 MG/ML VIAL IV PRN (23:11)
[2024-05-03] MEDS: Morphine 2mg Syringe 2 MG/ML SYR IV ONE (23:11)
[2024-05-04] VITALS (9 sets, daily range): BP systolic 93–118; BP diastolic 65–87; PULSE 86–114; RESP 16–19; TEMP 97.6–99.1; O2SAT 94–97
[2024-05-04] MEDS: HEPARIN SOD (PORCINE) 1000 UNIT/ML SDV IV ONE (01:13)
[2024-05-04] MEDS: SODIUM CHLORIDE 0.9% 250ML 250 ML ONE (02:39)
[2024-05-04] MEDS: SODIUM CHLORIDE 0.9% 1000ML 2,000 ML ONE (02:40)
[2024-05-04 06:19] LABS: BASOPHILS % 0.3 % (0.0-1.0); EOSINOPHILS # (AUTO) 0.4 (0.0-0.4); EOSINOPHILS % 3.9 % (0.0-6.0); HEMATOCRIT 32.9 % (34.2-44.1); HEMOGLOBIN 10.3 g/dL (12.0-16.0); LYMPHOCYTES # (AUTO) 0.5 (1.0-3.2); LYMPHOCYTES % 5.3 % (18.0-39.1); MEAN CORPUSCULAR HEMOGLOBIN 36.1 pg (28-32); MEAN CORPUSCULAR HGB CONC 31.3 g/dL (31-35); MEAN CORPUSCULAR VOLUME 115.4 fL (81-99); MONOCYTES # (AUTO) 0.5 (0.2-0.8); MONOCYTES % 5.6 % (4.4-11.3); NEUTROPHILS # (AUTO) 7.8 (2.1-6.9); NEUTROPHILS % 82.8 % (38.7-80.0); PLATELET COUNT 147 x10e3/uL (140-360); RED BLOOD COUNT 2.85 x10e6/uL (3.6-5.1); RED CELL DISTRIBUTION WIDTH 15.5 % (11.7-14.4); WHITE BLOOD COUNT 9.43 x10e3/uL (4.8-10.8)
[2024-05-04 07:03] LABS: ALBUMIN/GLOBULIN RATIO 0.7 (0.8-2.0); ANION GAP 19.1 mmol/L (8-16); BILIRUBIN,TOTAL 0.5 mg/dL (0.2-1.2); CALCIUM 7.9 mg/dL (8.4-10.2); CREATININE, SERUM 6.33 mg/dL (0.57-1.11); POTASSIUM 4.1 mmol/L (3.5-5.1); TOTAL PROTEIN 7.2 g/dL (6.5-8.1)
[2024-05-04 07:09] LABS: TROPONIN I 0.019 ng/mL (0-0.300)
[2024-05-04] MEDS: ACETAMINOPHEN 325 MG TAB PO PRN (09:35)
[2024-05-04 10:35] LABS: ANISOCYTOSIS SLIGHT; BAND NEUTROPHILS % (MANUAL) 1 %; EOSINOPHILS % (MANUAL) 2 % (0-7); LYMPHOCYTES % (MANUAL) 8 % (19-48); MONOCYTES % (MANUAL) 6 % (3.4-9.0); NEUTROPHILS % (MANUAL) 83 % (40-74); PLATELET ESTIMATE ADEQUATE; PLATELET MORPHOLOGY COMMENT NORMAL
[2024-05-04] MEDS: SODIUM CHLORIDE 0.9% 1000ML 1,000 ML ONE (12:36)
[2024-05-04] MEDS ORDERED: NON-FORMULARY MEDICATION (Hydralazine Hcl* 50 MG) PO PRN (16:30)
[2024-05-04] MEDS: APIXABAN 2.5 MG TABLET PO SCH (17:01)
[2024-05-04] MEDS: GABAPENTIN 100 MG CAP PO SCH (17:01)
[2024-05-04] MEDS: KETOROLAC TROMETHAMINE 30 MG/ML VIAL IV PRN (17:04)
[2024-05-04] MEDS: METOPROLOL TARTRATE 50 MG TAB PO SCH (17:05)
[2024-05-04] MEDS: ATORVASTATIN 40 MG TAB PO SCH (20:27)
[2024-05-04] MEDS: PROMETHAZINE 12.5MG/ NACL 0.9% 12.5 MG/50 ML BAG IV PRN (23:39)
[2024-05-05] VITALS (8 sets, daily range): BP systolic 95–133; BP diastolic 52–95; PULSE 59–102; RESP 16–18; TEMP 97.1–98.9; O2SAT 95–99
[2024-05-05 08:09] LABS: TROPONIN I 0.014 ng/mL (0-0.300)
[2024-05-05] MEDS: BUMETANIDE 1 MG TAB PO SCH (09:00)
[2024-05-05] MEDS: PANTOPRAZOLE SOD 40 MG TABEC PO SCH (09:01)
[2024-05-05] MEDS: HYDROCODONE/APAP 10MG-325MG TAB PO PRN (09:04)
[2024-05-05] MEDS: ACYCLOVIR SODIUM INJ 500 MG in SODIUM CHLORIDE 0.9% 100 ML IV SCH (16:53)
[2024-05-05] MEDS: SODIUM CHLORIDE 0.9% 250ML 250 ML ONE (23:45)
[2024-05-06] VITALS (7 sets, daily range): BP systolic 89–129; BP diastolic 60–76; PULSE 74–109; RESP 18–24; TEMP 97.5–99; O2SAT 93–99
[2024-05-06 05:20] LABS: HEPATITIS B CORE AB TOTAL Negative; HEPATITIS B SURFACE AG (P) Negative
[2024-05-06] MEDS: NYSTATIN 15 GM POWDER UD BTL TOP SCH (16:44)
[2024-05-06 17:28] LABS: ANION GAP 25.2 mmol/L (8-16); CALCIUM 7.9 mg/dL (8.4-10.2); CREATININE, SERUM 11.22 mg/dL (0.57-1.11)
[2024-05-06 17:30] LABS: POTASSIUM 5.2 mmol/L (3.5-5.1)
[2024-05-06] MEDS ORDERED: MIDODRINE 2.5 MG TAB PO SCH (21:00)
[2024-05-06] MEDS: SODIUM CHLORIDE 0.9% 250ML 250 ML IV ONE (21:30)
[2024-05-06] MEDS: MIDODRINE 2.5 MG TAB PO ONE (21:41)
[2024-05-07] VITALS (8 sets, daily range): BP systolic 100–129; BP diastolic 52–88; PULSE 87–109; RESP 16–24; TEMP 97.5–99; O2SAT 93–100
[2024-05-07 07:58] LABS: BASOPHILS % 0.2 % (0.0-1.0); EOSINOPHILS # (AUTO) 0.6 (0.0-0.4); EOSINOPHILS % 4.8 % (0.0-6.0); HEMATOCRIT 28.3 % (34.2-44.1); HEMOGLOBIN 9.1 g/dL (12.0-16.0); LYMPHOCYTES # (AUTO) 0.6 (1.0-3.2); LYMPHOCYTES % 5.1 % (18.0-39.1); MEAN CORPUSCULAR HEMOGLOBIN 36.8 pg (28-32); MEAN CORPUSCULAR HGB CONC 32.2 g/dL (31-35); MEAN CORPUSCULAR VOLUME 114.6 fL (81-99); MONOCYTES # (AUTO) 0.7 (0.2-0.8); MONOCYTES % 6.4 % (4.4-11.3); NEUTROPHILS # (AUTO) 9.5 (2.1-6.9); NEUTROPHILS % 82.4 % (38.7-80.0); PLATELET COUNT 132 x10e3/uL (140-360); RED BLOOD COUNT 2.47 x10e6/uL (3.6-5.1); RED CELL DISTRIBUTION WIDTH 16.5 % (11.7-14.4); WHITE BLOOD COUNT 11.52 x10e3/uL (4.8-10.8)
[2024-05-07 08:55] LABS: ANION GAP 22.3 mmol/L (8-16); BLOOD UREA NITROGEN 71 mg/dL (7-26); BUN/CREATININE RATIO 7 (6-25); CALCIUM 7.5 mg/dL (8.4-10.2); CARBON DIOXIDE 20 mmol/L (22-29); CHLORIDE 97 mmol/L (98-107); CHOL/HDL RATIO 6.1 (3.0-3.6); CHOLESTEROL 85 MD/DL (0-199); CREATININE, SERUM 10.09 mg/dL (0.57-1.11); EST GLOMERULAR FILTRATION RATE 4 ML/MIN (>=60); GLUCOSE 205 mg/dL (74-118); HDL CHOLESTEROL 14 MG/DL (40-60); SODIUM 134 mmol/L (136-145); TRIGLYCERIDES 379 MG/DL (0-149)
[2024-05-07 09:00] LABS: POTASSIUM 5.3 mmol/L (3.5-5.1)
[2024-05-07 09:16] LABS: FREE T4 (FREE THYROXINE) 1.09 ng/dL (0.8-1.8); THYROID STIMULATING HORMONE 3.763 uIU/mL (0.350-4.940)
[2024-05-07 09:48] LABS: EOSINOPHILS % (MANUAL) 5 % (0-7); LYMPHOCYTES % (MANUAL) 7 % (19-48); NEUTROPHILS % (MANUAL) 88 % (40-74)
[2024-05-07 09:52] LABS: PLATELET MORPHOLOGY COMMENT NORMAL
[2024-05-07 09:53] LABS: PLATELET ESTIMATE ADEQUATE
[2024-05-07 09:54] LABS: RBC MORPHOLOGY COMMENT ABNORMAL
[2024-05-07 09:55] LABS: ANISOCYTOSIS SLIGHT
[2024-05-07] MEDS ORDERED: SODIUM CHLORIDE 0.9% 1000ML 2,000 ML IV PRN (17:00)
[2024-05-07] MEDS ORDERED: HEPARIN SOD (PORCINE) 1000 UNIT/ML SDV IV PRN (17:00)
[2024-05-07] MEDS ORDERED: ALBUMIN 25% 12.5GM 0.25 GM/ML BTL IV PRN (17:30)
[2024-05-07] MEDS: MIDODRINE HCL 5 MG TABLET PO ONE (17:32)
[2024-05-08] VITALS (18 sets, daily range): BP systolic 94–126; BP diastolic 62–89; PULSE 54–121; RESP 12–20; TEMP 98.1–99; O2SAT 92–100
[2024-05-08 06:39] LABS: ANION GAP 20.2 mmol/L (8-16); CALCIUM 9.1 mg/dL (8.4-10.2); CREATININE, SERUM 7.21 mg/dL (0.57-1.11)
[2024-05-08 06:46] LABS: POTASSIUM 5.2 mmol/L (3.5-5.1)
[2024-05-08] MEDS: MIDODRINE HCL 5 MG TABLET PO SCH ×2 (08:00→16:46)
[2024-05-08 16:45] LABS: ABG PCO2 43 mmHg (35-45)
[2024-05-08 16:46] LABS: ABG HCO3 26 mmol/L (22-26); ABG PO2 59 mmHg (80-105); ABG TCO2 27
[2024-05-08] MEDS: HEPARIN SOD (PORCINE) 1000 UNIT/ML SDV ONE (21:49)
[2024-05-08] MEDS: SODIUM CHLORIDE 0.9% 1000ML 1,000 ML ONE (21:49)
[2024-05-09] VITALS (34 sets, daily range): BP systolic 90–128; BP diastolic 39–88; PULSE 72–131; RESP 12–20; TEMP 98; O2SAT 92–99
[2024-05-09 07:00] LABS: ANION GAP 17.9 mmol/L (8-16); CALCIUM 8.5 mg/dL (8.4-10.2); CREATININE, SERUM 6.29 mg/dL (0.57-1.11); POTASSIUM 3.9 mmol/L (3.5-5.1)
== END 2024-05-09 15:54 | disposition home or self-care (01) | DRG 865 ==
LOC: ER 11:47 → ERHOLD 13:57 → MED/SURG 18:30 → OBSVTOIN 05-05 15:40 → MED/SURG2 05-05 16:10 → ICU 05-08 21:14 → MED/SURG2 05-09 10:31
PROVIDERS: ADMIT Internal Medicine; ATTEND Internal Medicine
PROC: 5A1D70Z Performance of Urinary Filtration, Intermittent, Less than 6 Hours Per Day (ICD-10-PCS; principal; 2024-05-03)
DX: B02.8 Zoster with other complications (principal); G92.8 Other toxic encephalopathy; N18.6 End stage renal disease; I13.2 Hypertensive heart and chronic kidney disease with heart failure and with stage 5 chronic kidney disease, or end stage renal disease; E44.0 Moderate protein-calorie malnutrition; I69.351 Hemiplegia and hemiparesis following cerebral infarction affecting right dominant side; I50.22 Chronic systolic (congestive) heart failure; I48.20 Chronic atrial fibrillation, unspecified; L03.317 Cellulitis of buttock; E66.01 Morbid (severe) obesity due to excess calories; Z68.42 Body mass index [BMI] 45.0-49.9, adult; Z99.81 Dependence on supplemental oxygen; Z99.2 Dependence on renal dialysis; I95.9 Hypotension, unspecified; E78.5 Hyperlipidemia, unspecified; E87.70 Fluid overload, unspecified; L30.4 Erythema intertrigo; K21.9 Gastro-esophageal reflux disease without esophagitis; I25.10 Atherosclerotic heart disease of native coronary artery without angina pectoris; F32.A Depression, unspecified; Z91.158 Patient's noncompliance with renal dialysis for other reason; Z79.01 Long term (current) use of anticoagulants; I25.2 Old myocardial infarction; Z95.5 Presence of coronary angioplasty implant and graft; Z86.711 Personal history of pulmonary embolism; Z86.718 Personal history of other venous thrombosis and embolism; Z88.5 Allergy status to narcotic agent; Z88.7 Allergy status to serum and vaccine; Z88.8 Allergy status to other drugs, medicaments and biological substances
CPT/HCPCS: 36415; 36600; 70450; 71045; 80048; 80053; 80061; 82140; 82550; 82607; 82805; 82948; 83036; 83735; 84439; 84443; 84484; 85025; 85610; 85730; 86704; 86706; 87040; 87340; 93005; 94799; 99252; 99284; G0378; J0696; J1450; J1644; J1885; J2270; J2405; J2550; J3411; J7030; J7050

== ENCOUNTER 2024-08-26 17:31 | Inpatient (IN) | payer MEDICARE ==
[~2024-08-26] VITALS: Ht 180.3 cm; Wt 147.9 kg
[2024-08-26 17:48] VITALS: TEMP 97.9
[2024-08-26 18:32] LABS: BASOPHILS % 0.3 % (0.0-1.0); EOSINOPHILS # (AUTO) 0.5 (0.0-0.4); EOSINOPHILS % 5.4 % (0.0-6.0); HEMATOCRIT 38.1 % (34.2-44.1); HEMOGLOBIN 11.6 g/dL (12.0-16.0); LYMPHOCYTES # (AUTO) 1.1 (1.0-3.2); LYMPHOCYTES % 12.6 % (18.0-39.1); MEAN CORPUSCULAR HEMOGLOBIN 36.1 pg (28-32); MEAN CORPUSCULAR HGB CONC 30.4 g/dL (31-35); MEAN CORPUSCULAR VOLUME 118.7 fL (81-99); MONOCYTES # (AUTO) 0.5 (0.2-0.8); MONOCYTES % 5.7 % (4.4-11.3); NEUTROPHILS # (AUTO) 6.6 (2.1-6.9); NEUTROPHILS % 74.9 % (38.7-80.0); PLATELET COUNT 207 x10e3/uL (140-360); RED BLOOD COUNT 3.21 x10e6/uL (3.6-5.1); RED CELL DISTRIBUTION WIDTH 15.5 % (11.7-14.4); WHITE BLOOD COUNT 8.78 x10e3/uL (4.8-10.8)
[2024-08-26] MEDS ORDERED: METOPROLOL TARTRATE INJ 1 MG/ML VIAL IV STA (18:37)
[2024-08-26 20:16] LABS: ALBUMIN 3.4 g/dL (3.5-5.0); ALBUMIN/GLOBULIN RATIO 0.8 (0.8-2.0); ANION GAP 28.1 mmol/L (8-16); BILIRUBIN,TOTAL 0.5 mg/dL (0.2-1.2); CALCIUM 8.4 mg/dL (8.4-10.2); CREATININE, SERUM 14.14 mg/dL (0.57-1.11); TOTAL PROTEIN 7.7 g/dL (6.5-8.1)
[2024-08-26 20:21] LABS: TROPONIN I 0.022 ng/mL (0-0.300)
[2024-08-26 20:24] LABS: POTASSIUM 6.1 mmol/L (3.5-5.1)
[2024-08-26] MEDS ORDERED: ONDANSETRON HCL INJ 2MG/ML 2ML 2 MG/ML VIAL IV PRN (20:30)
[2024-08-26] MEDS ORDERED: SODIUM CHLORIDE FLUSH 10 ML SYR INJ PRN (20:30)
[2024-08-26] MEDS ORDERED: Morphine 4mg INJECTION 4 MG/ML INJ IV PRN (20:30)
[2024-08-26] MEDS: SODIUM BICARBONATE 8.4% INJ 50 ML SYR IV STA (22:21)
[2024-08-26] MEDS: FUROSEMIDE INJ 10 MG/ML 10 ML VIAL IV ONE (22:21)
[2024-08-26] MEDS: CALCIUM GLUC 1 G/50 ML NACL 50 ML IV ONE (22:22)
[2024-08-26] MEDS: DEXTROSE 50% SYRINGE 50 ML IV ONE (22:23)
[2024-08-26] MEDS: INSULIN REGULAR, HUMAN 100 UNIT/1 ML IV ONE (22:26)
[2024-08-26 22:39] VITALS: PULSE 100; RESP 18; O2SAT 100
[2024-08-26 22:43] VITALS: PULSE 97; RESP 20
[2024-08-26 23:39] VITALS: BP 143/116; PULSE 100; RESP 18; TEMP 97.8; O2SAT 100
[2024-08-27] VITALS (9 sets, daily range): BP systolic 123–143; BP diastolic 81–116; PULSE 20–113; RESP 18–20; TEMP 97.6–98.3; O2SAT 91–100
[2024-08-27 05:09] LABS: BASOPHILS % 0.4 % (0.0-1.0); EOSINOPHILS # (AUTO) 0.4 (0.0-0.4); EOSINOPHILS % 5.5 % (0.0-6.0); HEMOGLOBIN 11.5 g/dL (12.0-16.0); LYMPHOCYTES # (AUTO) 0.9 (1.0-3.2); LYMPHOCYTES % 11.2 % (18.0-39.1); MEAN CORPUSCULAR HEMOGLOBIN 36.1 pg (28-32); MEAN CORPUSCULAR HGB CONC 31.9 g/dL (31-35); MEAN CORPUSCULAR VOLUME 112.9 fL (81-99); MONOCYTES # (AUTO) 0.5 (0.2-0.8); MONOCYTES % 6.4 % (4.4-11.3); NEUTROPHILS % 75.1 % (38.7-80.0); PLATELET COUNT 190 x10e3/uL (140-360); RED BLOOD COUNT 3.19 x10e6/uL (3.6-5.1); RED CELL DISTRIBUTION WIDTH 15.5 % (11.7-14.4); WHITE BLOOD COUNT 7.98 x10e3/uL (4.8-10.8)
[2024-08-27] MEDS ORDERED: SODIUM CHLORIDE 0.9% 1000ML 2,000 ML IV PRN ×2 (05:30→10:30)
[2024-08-27 05:39] LABS: ALBUMIN/GLOBULIN RATIO 0.8 (0.8-2.0); ANION GAP 26.5 mmol/L (8-16); BILIRUBIN,TOTAL 0.5 mg/dL (0.2-1.2); CALCIUM 8.2 mg/dL (8.4-10.2); CREATININE, SERUM 14.47 mg/dL (0.57-1.11)
[2024-08-27 05:40] LABS: POTASSIUM 5.5 mmol/L (3.5-5.1)
[2024-08-27 05:58] LABS: TROPONIN I 0.022 ng/mL (0-0.300)
[2024-08-27] MEDS ORDERED: ALBUTEROL/IPRATROPIUM 3 ML NEB NEB PRN (08:00)
[2024-08-27] MEDS ORDERED: HYDRALAZINE HCL 20 MG/ML VIAL IV PRN (08:00)
[2024-08-27] MEDS: METOPROLOL TARTRATE 50 MG TAB PO SCH (09:00)
[2024-08-27] MEDS: APIXABAN 2.5 MG TABLET PO SCH (09:05)
[2024-08-27] MEDS: PANTOPRAZOLE SOD 40 MG TABEC PO SCH (09:05)
[2024-08-27] MEDS: ACETAMINOPHEN 325 MG TAB PO PRN (09:05)
[2024-08-27] MEDS: GABAPENTIN 100 MG CAP PO SCH (09:05)
[2024-08-27] MEDS: LORATADINE 10 MG TAB PO SCH (09:05)
[2024-08-27] MEDS: METHYLPREDNISOLONE SOD SUCC 40 MG/ML VIAL 1ML IV ONE (09:06)
[2024-08-27] MEDS ORDERED: ALBUMIN 25% 12.5GM 0.25 GM/ML BTL IV PRN (10:30)
[2024-08-27] MEDS ORDERED: MANNITOL 25% 12.5GM/50 ML VIAL IV PRN (10:30)
[2024-08-27] MEDS ORDERED: HEPARIN SOD (PORCINE) 1000 UNIT/ML SDV IV PRN (10:30)
[2024-08-27 13:10] LABS: TROPONIN I 0.001 ng/mL (0-0.300)
[2024-08-27] MEDS: ATORVASTATIN 40 MG TAB PO SCH (22:35)
[2024-08-28 04:00] VITALS: BP 134/77; PULSE 106; RESP 18; TEMP 97.9; O2SAT 100
[2024-08-28 05:27] LABS: BASOPHILS % 0.3 % (0.0-1.0); EOSINOPHILS % 0.1 % (0.0-6.0); HEMATOCRIT 32.5 % (34.2-44.1); HEMOGLOBIN 10.4 g/dL (12.0-16.0); LYMPHOCYTES # (AUTO) 0.6 (1.0-3.2); LYMPHOCYTES % 7.8 % (18.0-39.1); MEAN CORPUSCULAR HEMOGLOBIN 35.7 pg (28-32); MEAN CORPUSCULAR VOLUME 111.7 fL (81-99); MONOCYTES # (AUTO) 0.4 (0.2-0.8); MONOCYTES % 5.5 % (4.4-11.3); NEUTROPHILS # (AUTO) 6.4 (2.1-6.9); NEUTROPHILS % 83.7 % (38.7-80.0); PLATELET COUNT 193 x10e3/uL (140-360); RED BLOOD COUNT 2.91 x10e6/uL (3.6-5.1); RED CELL DISTRIBUTION WIDTH 15.3 % (11.7-14.4); WHITE BLOOD COUNT 7.67 x10e3/uL (4.8-10.8)
[2024-08-28 06:04] LABS: ANION GAP 23.2 mmol/L (8-16); CALCIUM 8.4 mg/dL (8.4-10.2); CREATININE, SERUM 9.37 mg/dL (0.57-1.11)
[2024-08-28 06:08] LABS: POTASSIUM 5.2 mmol/L (3.5-5.1)
[2024-08-28 08:14] VITALS: PULSE 121; RESP 18; O2SAT 92
[2024-08-28 09:00] VITALS: BP 125/81; PULSE 113; RESP 18; TEMP 97.8; O2SAT 92
[2024-08-28] MEDS ORDERED: SENNA-S TABLET PO SCH (09:00)
[2024-08-28] MEDS ORDERED: DOCUSATE SODIUM LIQD 100 MG/10 ML UDC NG SCH (09:00)
[2024-08-28 12:00] VITALS: BP 157/107; PULSE 91; RESP 18; TEMP 97.4; O2SAT 100
[2024-08-28 14:40] LABS: HEPATITIS B SURFACE AG (P) Negative (Negative)
[2024-08-29 10:11] LABS: HEPATITIS B CORE AB TOTAL Negative
[2024-08-29 10:13] LABS: HEPATITIS B SURFACE AB QUANT Reactive; HEPATITIS B SURFACE AG Negative; HEPATITIS C ANTIBODY Non Reactive
== END 2024-08-28 14:20 | disposition home or self-care (01) | DRG 640 ==
LOC: ER 18:13 → ERHOLD 20:32 → MED/SURG 23:57 → OBSVTOIN 08-27 08:01
PROVIDERS: ADMIT Internal Medicine; ATTEND Internal Medicine
PROC: 5A1D70Z Performance of Urinary Filtration, Intermittent, Less than 6 Hours Per Day (ICD-10-PCS; principal; 2024-08-28)
DX: E87.5 Hyperkalemia (principal); N18.6 End stage renal disease; I13.2 Hypertensive heart and chronic kidney disease with heart failure and with stage 5 chronic kidney disease, or end stage renal disease; Z68.42 Body mass index [BMI] 45.0-49.9, adult; I69.351 Hemiplegia and hemiparesis following cerebral infarction affecting right dominant side; E11.22 Type 2 diabetes mellitus with diabetic chronic kidney disease; I50.9 Heart failure, unspecified; Z99.2 Dependence on renal dialysis; Z91.158 Patient's noncompliance with renal dialysis for other reason; I48.91 Unspecified atrial fibrillation; Z79.01 Long term (current) use of anticoagulants; I25.10 Atherosclerotic heart disease of native coronary artery without angina pectoris; Z95.5 Presence of coronary angioplasty implant and graft; E66.01 Morbid (severe) obesity due to excess calories; Z71.3 Dietary counseling and surveillance; E78.5 Hyperlipidemia, unspecified; F32.A Depression, unspecified; I25.2 Old myocardial infarction; Z74.01 Bed confinement status; Z99.3 Dependence on wheelchair; Z86.711 Personal history of pulmonary embolism; Z86.718 Personal history of other venous thrombosis and embolism; Z79.899 Other long term (current) drug therapy
CPT/HCPCS: 36415; 71045; 80048; 80053; 82550; 83690; 83880; 84484; 85025; 86704; 86706; 86803; 87340; 93005; 94799; 99284; G0378; J1644; J1940; J2919; J7030; J7799

== ENCOUNTER 2024-12-19 14:22 | Inpatient (IN) | payer MEDICARE, OTHER ==
[2024-12-19] VITALS (8 sets, daily range): BP systolic 99–129; BP diastolic 69–82; PULSE 78–104; RESP 16–22; TEMP 98.4–98.8; O2SAT 99–100
[~2024-12-19] VITALS: Ht 180.3 cm; Wt 184.2 kg
[2024-12-19 14:51] LABS: BASOPHILS # (AUTO) 0.1 (0.0-0.1); BASOPHILS % 0.5 % (0.0-1.0); EOSINOPHILS # (AUTO) 0.4 (0.0-0.4); EOSINOPHILS % 3.5 % (0.0-6.0); HEMATOCRIT 31.6 % (34.2-44.1); HEMOGLOBIN 9.5 g/dL (12.0-16.0); LYMPHOCYTES # (AUTO) 1.4 (1.0-3.2); LYMPHOCYTES % 10.8 % (18.0-39.1); MEAN CORPUSCULAR HEMOGLOBIN 36.4 pg (28-32); MEAN CORPUSCULAR HGB CONC 30.1 g/dL (31-35); MEAN CORPUSCULAR VOLUME 121.1 fL (81-99); MONOCYTES # (AUTO) 0.8 (0.2-0.8); MONOCYTES % 6.2 % (4.4-11.3); NEUTROPHILS # (AUTO) 9.5 (2.1-6.9); NEUTROPHILS % 75.1 % (38.7-80.0); PLATELET COUNT 226 x10e3/uL (140-360); RED BLOOD COUNT 2.61 x10e6/uL (3.6-5.1); RED CELL DISTRIBUTION WIDTH 15.1 % (11.7-14.4); WHITE BLOOD COUNT 12.66 x10e3/uL (4.8-10.8)
[2024-12-19] MEDS: ALBUTEROL/IPRATROPIUM 3 ML NEB NEB ONE (15:02)
[2024-12-19] MEDS ORDERED: AMIODARONE 900MG 900 MG in Premix Bag 1 BAG IV SCH (15:15)
[2024-12-19 15:17] LABS: ALBUMIN 3.4 g/dL (3.5-5.0); ALBUMIN/GLOBULIN RATIO 0.8 (0.8-2.0); BILIRUBIN,TOTAL 0.6 mg/dL (0.2-1.2); CREATININE, SERUM 13.25 mg/dL (0.57-1.11); TOTAL PROTEIN 7.9 g/dL (6.5-8.1)
[2024-12-19 15:20] LABS: INR 1.45; PROTHROMBIN TIME 18.8 seconds (11.9-14.5)
[2024-12-19] MEDS: MEROPENEM 1 GM in SODIUM CHLORIDE 0.9% 100 ML IV ONE (15:20)
[2024-12-19 15:21] LABS: PARTIAL THROMBOPLASTIN TIME 42.7 seconds (23.8-35.5)
[2024-12-19] MEDS: SODIUM CHLORIDE 0.9% 500ML 500 ML IV ONE (15:21)
[2024-12-19 15:23] LABS: TROPONIN I 0.025 ng/mL (0-0.300)
[2024-12-19] MEDS: SODIUM BICARBONATE 8.4% INJ 50 ML SYR IV STA (16:36)
[2024-12-19] MEDS: DEXTROSE 50% SYRINGE 50 ML IV STA (16:36)
[2024-12-19] MEDS: SOD POLYSTYRENE SULFONATE SUSP 15 GM/60 ML BTL PO ONE (16:37)
[2024-12-19] MEDS: Vancomycin IV 1 GM in SODIUM CHLORIDE 0.9% 250ML 250 ML IV ONE (16:37)
[2024-12-19] MEDS: FUROSEMIDE INJ 10 MG/ML 4 ML VIAL IV ONE (16:38)
[2024-12-19] MEDS: INSULIN REGULAR, HUMAN 100 UNIT/1 ML IV ONE (16:53)
[2024-12-19] MEDS: GABAPENTIN 100 MG CAP PO SCH (17:42)
[2024-12-19] MEDS: APIXABAN 2.5 MG TABLET PO SCH (17:43)
[2024-12-19] MEDS: AMIODARONE HCL 150 MG/100 ML BAG IV ONE ×2 (18:32→18:42)
[2024-12-19] MEDS: AMIODARONE 900MG 500 ML IV SCH (18:40)
[2024-12-19] MEDS ORDERED: HEPARIN SOD (PORCINE) 1000 UNIT/ML SDV IV PRN (19:30)
[2024-12-19] MEDS ORDERED: SODIUM CHLORIDE 0.9% 1000ML 2,000 ML IV PRN (19:30)
[2024-12-19] MEDS ORDERED: ALBUMIN 25% 12.5GM 0.25 GM/ML BTL IV PRN (19:30)
[2024-12-19] MEDS: HEPARIN SOD (PORCINE) 1000 UNIT/ML SDV IV PRN (21:02)
[2024-12-19] MEDS: ATORVASTATIN 40 MG TAB PO SCH (21:03)
[2024-12-19] MEDS ORDERED: MIDODRINE 2.5 MG TAB PO PRN (22:00)
[2024-12-19] MEDS ORDERED: DEXTROSE 50% SYRINGE 50 ML IV PRN (22:00)
[2024-12-20] VITALS (53 sets, daily range): BP systolic 67–139; BP diastolic 35–127; PULSE 57–107; RESP 12–31; TEMP 97.8–97.9; O2SAT 94–100
[2024-12-20 01:14] LABS: TROPONIN I 0.026 ng/mL (0-0.300)
[2024-12-20 06:13] LABS: BASOPHILS # (AUTO) 0.1 (0.0-0.1); BASOPHILS % 0.5 % (0.0-1.0); EOSINOPHILS # (AUTO) 0.4 (0.0-0.4); EOSINOPHILS % 4.3 % (0.0-6.0); HEMATOCRIT 31.9 % (34.2-44.1); HEMOGLOBIN 9.8 g/dL (12.0-16.0); LYMPHOCYTES # (AUTO) 0.8 (1.0-3.2); LYMPHOCYTES % 8.4 % (18.0-39.1); MEAN CORPUSCULAR HEMOGLOBIN 36.6 pg (28-32); MEAN CORPUSCULAR HGB CONC 30.7 g/dL (31-35); MONOCYTES # (AUTO) 0.8 (0.2-0.8); MONOCYTES % 8.8 % (4.4-11.3); NEUTROPHILS # (AUTO) 7.2 (2.1-6.9); NEUTROPHILS % 75.9 % (38.7-80.0); PLATELET COUNT 189 x10e3/uL (140-360); RED BLOOD COUNT 2.68 x10e6/uL (3.6-5.1); RED CELL DISTRIBUTION WIDTH 15.1 % (11.7-14.4); WHITE BLOOD COUNT 9.54 x10e3/uL (4.8-10.8)
[2024-12-20 06:25] LABS: HEPATITIS B SURFACE AB QUANT 9.2 mIU/mL (Immunity>10); HEPATITIS B SURFACE AG (P) Negative (Negative)
[2024-12-20 06:40] LABS: ALANINE AMINOTRANSFERASE 9 IU/L (0-55); ALBUMIN 3.3 g/dL (3.5-5.0); ALBUMIN/GLOBULIN RATIO 0.8 (0.8-2.0); ALKALINE PHOSPHATASE 65 IU/L (40-150); ANION GAP 22.6 mmol/L (8-16); BILIRUBIN,TOTAL 0.6 mg/dL (0.2-1.2); BLOOD UREA NITROGEN 64 mg/dL (7-26); BUN/CREATININE RATIO 6 (6-25); CARBON DIOXIDE 22 mmol/L (22-29); CHLORIDE 100 mmol/L (98-107); CHOL/HDL RATIO 4.3 (3.0-3.6); CREATININE, SERUM 9.92 mg/dL (0.57-1.11); EST GLOMERULAR FILTRATION RATE 4 ML/MIN (>=60); GLUCOSE 163 mg/dL (74-118); HDL CHOLESTEROL 18 MG/DL (40-60); PHOSPHORUS 6.4 MG/DL (2.3-4.7); SODIUM 139 mmol/L (136-145); TOTAL PROTEIN 7.7 g/dL (6.5-8.1); TRIGLYCERIDES 323 MG/DL (0-149)
[2024-12-20 06:42] LABS: CHOLESTEROL 77 MD/DL (0-199)
[2024-12-20 06:43] LABS: POTASSIUM 5.6 mmol/L (3.5-5.1)
[2024-12-20 06:58] LABS: TROPONIN I 0.028 ng/mL (0-0.300)
[2024-12-20] MEDS: PANTOPRAZOLE SOD 40 MG TABEC PO SCH (07:55)
[2024-12-20] MEDS: INSULIN LISPRO 100 UNIT/1 ML 3ML VIAL SQ SCH (07:56)
[2024-12-20 09:33] LABS: THYROID STIMULATING HORMONE 6.87 uIU/mL (0.350-4.940)
[2024-12-21] VITALS (34 sets, daily range): BP systolic 95–126; BP diastolic 57–79; PULSE 83–123; RESP 13–25; TEMP 97.6–99.2; O2SAT 88–100
[2024-12-21 06:50] LABS: ANION GAP 19.7 mmol/L (8-16); CALCIUM 7.8 mg/dL (8.4-10.2); CREATININE, SERUM 7.46 mg/dL (0.57-1.11); PHOSPHORUS 5.4 MG/DL (2.3-4.7); POTASSIUM 4.7 mmol/L (3.5-5.1)
[2024-12-21] MEDS ORDERED: SODIUM CHLORIDE 0.9% 1000ML 2,000 ML IV PRN (10:30)
[2024-12-21] MEDS ORDERED: ALBUMIN 25% 12.5GM 0.25 GM/ML BTL IV PRN (10:30)
[2024-12-21] MEDS ORDERED: HEPARIN SOD (PORCINE) 1000 UNIT/ML SDV IV PRN (10:30)
[2024-12-21] MEDS: ONDANSETRON HCL INJ 2MG/ML 2ML 2 MG/ML VIAL IV PRN (13:46)
[2024-12-21] MEDS ORDERED: AMIODARONE 900MG 500 ML IV SCH (15:00)
[2024-12-22] VITALS (32 sets, daily range): BP systolic 88–139; BP diastolic 48–119; PULSE 10–132; RESP 13–23; TEMP 97.9–99.3; O2SAT 81–100
[2024-12-22 08:48] LABS: BASOPHILS % 0.4 % (0.0-1.0); EOSINOPHILS # (AUTO) 0.4 (0.0-0.4); EOSINOPHILS % 4.8 % (0.0-6.0); HEMATOCRIT 26.5 % (34.2-44.1); HEMOGLOBIN 8.1 g/dL (12.0-16.0); LYMPHOCYTES # (AUTO) 0.7 (1.0-3.2); LYMPHOCYTES % 8.9 % (18.0-39.1); MEAN CORPUSCULAR HEMOGLOBIN 36.2 pg (28-32); MEAN CORPUSCULAR HGB CONC 30.6 g/dL (31-35); MEAN CORPUSCULAR VOLUME 118.3 fL (81-99); MONOCYTES # (AUTO) 0.7 (0.2-0.8); MONOCYTES % 8.8 % (4.4-11.3); NEUTROPHILS # (AUTO) 6.2 (2.1-6.9); NEUTROPHILS % 75.9 % (38.7-80.0); PLATELET COUNT 192 x10e3/uL (140-360); RED BLOOD COUNT 2.24 x10e6/uL (3.6-5.1); RED CELL DISTRIBUTION WIDTH 14.7 % (11.7-14.4); WHITE BLOOD COUNT 8.18 x10e3/uL (4.8-10.8)
[2024-12-22 09:17] LABS: ALBUMIN/GLOBULIN RATIO 0.8 (0.8-2.0); ANION GAP 17.4 mmol/L (8-16); BILIRUBIN,TOTAL 0.7 mg/dL (0.2-1.2); CALCIUM 8.1 mg/dL (8.4-10.2); CREATININE, SERUM 5.9 mg/dL (0.57-1.11); POTASSIUM 4.4 mmol/L (3.5-5.1); TOTAL PROTEIN 6.8 g/dL (6.5-8.1)
[2024-12-22] MEDS: AMIODARONE HCL 200 MG TAB PO STA (13:43)
[2024-12-22] MEDS: METOPROLOL TARTRATE 25 MG TAB PO SCH (13:44)
[2024-12-23] VITALS (50 sets, daily range): BP systolic 90–136; BP diastolic 47–88; PULSE 40–124; RESP 12–28; TEMP 98.1–99.2; O2SAT 87–100
[2024-12-23] MEDS: AMIODARONE HCL 200 MG TAB PO SCH (09:16)
[2024-12-23 10:16] LABS: BASOPHILS % 0.3 % (0.0-1.0); EOSINOPHILS # (AUTO) 0.5 (0.0-0.4); EOSINOPHILS % 5.2 % (0.0-6.0); HEMATOCRIT 25.5 % (34.2-44.1); HEMOGLOBIN 7.8 g/dL (12.0-16.0); LYMPHOCYTES % 10.7 % (18.0-39.1); MEAN CORPUSCULAR HEMOGLOBIN 35.9 pg (28-32); MEAN CORPUSCULAR HGB CONC 30.6 g/dL (31-35); MEAN CORPUSCULAR VOLUME 117.5 fL (81-99); MONOCYTES # (AUTO) 0.7 (0.2-0.8); NEUTROPHILS # (AUTO) 6.6 (2.1-6.9); NEUTROPHILS % 74.5 % (38.7-80.0); PLATELET COUNT 179 x10e3/uL (140-360); RED BLOOD COUNT 2.17 x10e6/uL (3.6-5.1); WHITE BLOOD COUNT 8.91 x10e3/uL (4.8-10.8)
[2024-12-23 10:29] LABS: ALBUMIN 2.9 g/dL (3.5-5.0); ALBUMIN/GLOBULIN RATIO 0.7 (0.8-2.0); ANION GAP 18.4 mmol/L (8-16); BILIRUBIN,TOTAL 0.7 mg/dL (0.2-1.2); CALCIUM 7.8 mg/dL (8.4-10.2); CREATININE, SERUM 7.52 mg/dL (0.57-1.11); POTASSIUM 4.4 mmol/L (3.5-5.1); TOTAL PROTEIN 6.8 g/dL (6.5-8.1)
[2024-12-23] MEDS: ACETAMINOPHEN 325 MG TAB PO PRN (10:57)
[2024-12-23] MEDS: LOPERAMIDE HCL 2 MG CAP PO PRN (13:49)
[2024-12-23 15:01] LABS: ANISOCYTOSIS SLIGHT; PLATELET ESTIMATE ADEQUATE; PLATELET MORPHOLOGY COMMENT NORMAL; RBC MORPHOLOGY COMMENT ABNORMAL
[2024-12-24] VITALS (23 sets, daily range): BP systolic 101–162; BP diastolic 57–100; PULSE 68–105; RESP 13–21; TEMP 98–98.4; O2SAT 92–100
[2024-12-24 07:30] LABS: INR 1.34; PARTIAL THROMBOPLASTIN TIME 36.7 seconds (23.8-35.5); PROTHROMBIN TIME 17.7 seconds (11.9-14.5)
[2024-12-24 07:42] LABS: ANION GAP 17.3 mmol/L (8-16); CREATININE, SERUM 6.53 mg/dL (0.57-1.11); POTASSIUM 4.3 mmol/L (3.5-5.1)
[2024-12-24] MEDS ORDERED: LIDOCAINE HCL 1% 30ML-PF VIAL ONE ×2 (12:29→13:35)
[2024-12-25] VITALS (17 sets, daily range): BP systolic 96–133; BP diastolic 54–84; PULSE 76–99; RESP 14–22; TEMP 97.7–98.3; O2SAT 90–100
[2024-12-25] MEDS: ENOXAPARIN SOD INJ 40 MG/0.4 ML SYR SC ONE (22:16)
[2024-12-25] MEDS: METOCLOPRAMIDE HCL 10 MG/2ML VIAL ONE (23:49)
[2024-12-26] VITALS (9 sets, daily range): BP systolic 115–165; BP diastolic 66–89; PULSE 81–99; RESP 16–20; TEMP 97.5–98.5; O2SAT 92–98
[2024-12-26] MEDS: METOCLOPRAMIDE HCL 10 MG/2ML VIAL IV SCH (00:31)
[2024-12-26 05:21] LABS: BASOPHILS # (AUTO) 0.1 (0.0-0.1); BASOPHILS % 0.7 % (0.0-1.0); EOSINOPHILS # (AUTO) 0.4 (0.0-0.4); EOSINOPHILS % 4.7 % (0.0-6.0); HEMATOCRIT 25.7 % (34.2-44.1); HEMOGLOBIN 7.9 g/dL (12.0-16.0); LYMPHOCYTES % 11.8 % (18.0-39.1); MEAN CORPUSCULAR HEMOGLOBIN 35.9 pg (28-32); MEAN CORPUSCULAR HGB CONC 30.7 g/dL (31-35); MEAN CORPUSCULAR VOLUME 116.8 fL (81-99); MONOCYTES # (AUTO) 0.6 (0.2-0.8); MONOCYTES % 7.4 % (4.4-11.3); NEUTROPHILS # (AUTO) 6.4 (2.1-6.9); PLATELET COUNT 155 x10e3/uL (140-360); RED CELL DISTRIBUTION WIDTH 14.6 % (11.7-14.4); WHITE BLOOD COUNT 8.57 x10e3/uL (4.8-10.8)
[2024-12-26 05:51] LABS: ANION GAP 18.1 mmol/L (8-16); CALCIUM 7.7 mg/dL (8.4-10.2); CREATININE, SERUM 7.56 mg/dL (0.57-1.11); POTASSIUM 4.1 mmol/L (3.5-5.1)
[2024-12-26] MEDS ORDERED: ENOXAPARIN SOD INJ 40 MG/0.4 ML SYR SC SCH (09:00)
[2024-12-26 09:14] LABS: EOSINOPHILS % (MANUAL) 6 % (0-7); LYMPHOCYTES % (MANUAL) 7 % (19-48); MONOCYTES % (MANUAL) 8 % (3.4-9.0); MYELOCYTES % (MANUAL) 2 % (0-0); NEUTROPHILS % (MANUAL) 74 % (40-74); PLATELET ESTIMATE ADEQUATE; PLATELET MORPHOLOGY COMMENT NORMAL; RBC MORPHOLOGY COMMENT NORMAL; REACTIVE LYMPHOCYTES 3
[2024-12-26] MEDS: APIXABAN 2.5 MG TABLET PO SCH (16:32)
[2024-12-27] VITALS (12 sets, daily range): BP systolic 12–152; BP diastolic 61–96; PULSE 50–102; RESP 16–20; TEMP 97.8–98.4; O2SAT 95–99
[2024-12-27] MEDS ORDERED: METOCLOPRAMIDE HCL 10 MG/2ML VIAL IV SCH
[2024-12-28] VITALS (7 sets, daily range): BP systolic 120–152; BP diastolic 54–78; PULSE 75–89; RESP 15–20; TEMP 97.3–97.9; O2SAT 92–100
[2024-12-28 07:03] LABS: BASOPHILS % 0.4 % (0.0-1.0); EOSINOPHILS # (AUTO) 0.6 (0.0-0.4); EOSINOPHILS % 5.7 % (0.0-6.0); HEMATOCRIT 28.3 % (34.2-44.1); HEMOGLOBIN 8.7 g/dL (12.0-16.0); LYMPHOCYTES # (AUTO) 0.9 (1.0-3.2); LYMPHOCYTES % 7.8 % (18.0-39.1); MEAN CORPUSCULAR HEMOGLOBIN 36.1 pg (28-32); MEAN CORPUSCULAR HGB CONC 30.7 g/dL (31-35); MEAN CORPUSCULAR VOLUME 117.4 fL (81-99); MONOCYTES # (AUTO) 0.7 (0.2-0.8); MONOCYTES % 6.1 % (4.4-11.3); NEUTROPHILS # (AUTO) 8.7 (2.1-6.9); NEUTROPHILS % 78.2 % (38.7-80.0); PLATELET COUNT 155 x10e3/uL (140-360); RED BLOOD COUNT 2.41 x10e6/uL (3.6-5.1); RED CELL DISTRIBUTION WIDTH 15.1 % (11.7-14.4); WHITE BLOOD COUNT 11.08 x10e3/uL (4.8-10.8)
[2024-12-28 07:55] LABS: ANION GAP 18.9 mmol/L (8-16); CALCIUM 7.8 mg/dL (8.4-10.2); CREATININE, SERUM 8.44 mg/dL (0.57-1.11); POTASSIUM 3.9 mmol/L (3.5-5.1)
[2024-12-28] MEDS: AMIODARONE HCL 200 MG TAB PO SCH (09:00)
[2024-12-28] MEDS: LIDOCAINE 4% PATCH TP SCH ×2 (10:00→21:44)
[2024-12-28] MEDS: DOXYCYCLINE HYCLATE TABLET 100 MG TAB PO SCH (10:00)
[2024-12-28 11:08] LABS: ANISOCYTOSIS SLIGHT; PLATELET ESTIMATE ADEQUATE; PLATELET MORPHOLOGY COMMENT NORMAL
[2024-12-28] MEDS: METOCLOPRAMIDE HCL 10 MG TAB PO SCH (11:30)
[2024-12-28] MEDS ORDERED: ALBUMIN 25% 12.5GM 0.25 GM/ML BTL IV PRN (12:00)
[2024-12-29] VITALS (7 sets, daily range): BP systolic 104–150; BP diastolic 51–98; PULSE 58–95; RESP 16–20; TEMP 97.2–98.4; O2SAT 93–100
[2024-12-30] VITALS (11 sets, daily range): BP systolic 112–128; BP diastolic 66–81; PULSE 75–106; RESP 16–18; TEMP 97.3–98.9; O2SAT 95–100
[2024-12-30 05:45] LABS: ANION GAP 17.7 mmol/L (8-16); CALCIUM 8.1 mg/dL (8.4-10.2); POTASSIUM 3.7 mmol/L (3.5-5.1)
[2024-12-30] MEDS: VANCOMYCIN HCL 125 MG CAPSULE PO SCH (09:14)
[2024-12-30] MEDS: CHOLESTYRAMINE 4 GM PACKET PO SCH (10:27)
[2024-12-30] MEDS: HEPARIN SOD (PORCINE) 1000 UNIT/ML SDV IV PRN (18:11)
[2024-12-31 04:24] VITALS: BP 112/58; PULSE 78; RESP 16; TEMP 98.5; O2SAT 96
[2024-12-31 07:49] VITALS: BP 102/56; PULSE 96; RESP 18; TEMP 97.8; O2SAT 100
[2024-12-31 07:55] VITALS: PULSE 86; RESP 16; O2SAT 98
[2024-12-31 11:16] VITALS: BP 138/81; PULSE 84; RESP 17; TEMP 97.8; O2SAT 99
[2024-12-31] MEDS: LIDOCAINE 4% PATCH TP SCH (11:41)
[2024-12-31 13:40] VITALS: PULSE 92; RESP 16; O2SAT 97
[2024-12-31] MEDS ORDERED: ONDANSETRON HCL 4 MG ORAL DISINTEGRATING TAB PO PRN (14:15)
== END 2024-12-31 15:05 | disposition home health service (06) | DRG 640 ==
LOC: ER 14:29 → ERHOLD 15:54 → ICU 17:22 → MED/SURG 12-25 15:07
PROVIDERS: ADMIT Internal Medicine; ATTEND Internal Medicine
PROC: 5A1D70Z Performance of Urinary Filtration, Intermittent, Less than 6 Hours Per Day (ICD-10-PCS; principal; 2024-12-19)
PROC: 5A1D70Z Performance of Urinary Filtration, Intermittent, Less than 6 Hours Per Day (ICD-10-PCS; 2024-12-20)
PROC: 5A1D70Z Performance of Urinary Filtration, Intermittent, Less than 6 Hours Per Day (ICD-10-PCS; 2024-12-21)
PROC: 5A0935A Assistance with Respiratory Ventilation, Less than 24 Consecutive Hours, High Flow/Velocity Cannula (ICD-10-PCS; 2024-12-22)
PROC: 5A1D70Z Performance of Urinary Filtration, Intermittent, Less than 6 Hours Per Day (ICD-10-PCS; 2024-12-22)
PROC: 5A0935A Assistance with Respiratory Ventilation, Less than 24 Consecutive Hours, High Flow/Velocity Cannula (ICD-10-PCS; 2024-12-23)
PROC: 5A1D70Z Performance of Urinary Filtration, Intermittent, Less than 6 Hours Per Day (ICD-10-PCS; 2024-12-24)
PROC: 5A1D70Z Performance of Urinary Filtration, Intermittent, Less than 6 Hours Per Day (ICD-10-PCS; 2024-12-26)
PROC: 5A1D70Z Performance of Urinary Filtration, Intermittent, Less than 6 Hours Per Day (ICD-10-PCS; 2024-12-30)
PROC: 5A1D70Z Performance of Urinary Filtration, Intermittent, Less than 6 Hours Per Day (ICD-10-PCS; 2024-12-31)
DX: E87.79 Other fluid overload (principal); J96.01 Acute respiratory failure with hypoxia; N18.6 End stage renal disease; I13.2 Hypertensive heart and chronic kidney disease with heart failure and with stage 5 chronic kidney disease, or end stage renal disease; Z68.43 Body mass index [BMI] 50.0-59.9, adult; I69.351 Hemiplegia and hemiparesis following cerebral infarction affecting right dominant side; J93.9 Pneumothorax, unspecified; L03.116 Cellulitis of left lower limb; L03.115 Cellulitis of right lower limb; I50.42 Chronic combined systolic (congestive) and diastolic (congestive) heart failure; E87.5 Hyperkalemia; E87.20 Acidosis, unspecified; E11.22 Type 2 diabetes mellitus with diabetic chronic kidney disease; Z99.2 Dependence on renal dialysis; E66.01 Morbid (severe) obesity due to excess calories; Z71.3 Dietary counseling and surveillance; I48.91 Unspecified atrial fibrillation; Z79.01 Long term (current) use of anticoagulants; I25.10 Atherosclerotic heart disease of native coronary artery without angina pectoris; Z95.5 Presence of coronary angioplasty implant and graft; R00.0 Tachycardia, unspecified; Z99.81 Dependence on supplemental oxygen; I27.20 Pulmonary hypertension, unspecified; I89.0 Lymphedema, not elsewhere classified; S30.820A Blister (nonthermal) of lower back and pelvis, initial encounter; S30.827A Blister (nonthermal) of anus, initial encounter; X58.XXXA Exposure to other specified factors, initial encounter; Y92.009 Unspecified place in unspecified non-institutional (private) residence as the place of occurrence of the external cause; Z91.158 Patient's noncompliance with renal dialysis for other reason; S81.802A Unspecified open wound, left lower leg, initial encounter; E78.5 Hyperlipidemia, unspecified; K21.9 Gastro-esophageal reflux disease without esophagitis; J45.909 Unspecified asthma, uncomplicated; I25.2 Old myocardial infarction; M25.561 Pain in right knee; W19.XXXA Unspecified fall, initial encounter; Y92.230 Patient room in hospital as the place of occurrence of the external cause; R19.7 Diarrhea, unspecified; R53.81 Other malaise; I25.5 Ischemic cardiomyopathy; D64.9 Anemia, unspecified; G47.33 Obstructive sleep apnea (adult) (pediatric); I70.90 Unspecified atherosclerosis; F32.9 Major depressive disorder, single episode, unspecified; I87.8 Other specified disorders of veins; Z74.01 Bed confinement status; Z99.3 Dependence on wheelchair; Z86.718 Personal history of other venous thrombosis and embolism; Z71.81 Spiritual or religious counseling; Z79.899 Other long term (current) drug therapy
CPT/HCPCS: 36415; 71045; 71250; 74176; 74470; 80048; 80053; 80061; 82550; 82948; 83036; 83540; 83605; 84100; 84443; 84466; 84484; 85025; 85610; 85730; 86706; 87040; 87340; 90962; 93005; 93306; 94640; 94799; 99252; 99285; J0612; J1644; J1650; J1938; J2003; J2185; J2405; J2470; J2543; J2765; J7030; J7040; J7050; J7799

== ENCOUNTER 2025-03-24 18:09 | Inpatient (IN) | payer MEDICARE, OTHER ==
[~2025-03-24] VITALS: Ht 180.3 cm; Wt 111.6 kg
[2025-03-24 18:25] VITALS: TEMP 98.8
[2025-03-24 19:05] LABS: BASOPHILS % 0.4 % (0.0-1.0); EOSINOPHILS % 3.2 % (0.0-6.0); LYMPHOCYTES % 10.8 % (18.0-39.1); MONOCYTES % 4.7 % (4.4-11.3); NEUTROPHILS % 78.1 % (38.7-80.0); RED CELL DISTRIBUTION WIDTH 19.7 % (11.7-14.4)
[2025-03-24 20:03] LABS: EST GLOMERULAR FILTRATION RATE 3.0 ML/MIN (>=60)
[2025-03-24] MEDS ORDERED: SODIUM BICARBONATE 8.4% 50 ML VIAL IV STA (20:53)
[2025-03-24] MEDS ORDERED: ONDANSETRON HCL INJ 2MG/ML 2ML 2 MG/ML VIAL IV PRN (21:00)
[2025-03-24] MEDS ORDERED: SODIUM CHLORIDE FLUSH 10 ML SYR INJ PRN (21:00)
[2025-03-24] MEDS ORDERED: CALCIUM GLUCONATE 10% INJ 9.3 MEQ in SODIUM CHLORIDE 0.9% 100 ML IV ONE (21:00)
[2025-03-24] MEDS: ALBUTEROL SULF 0.083% NEB SOLN 3 ML NEB NEB STA (21:19)
[2025-03-24 21:20] VITALS: PULSE 76; RESP 16; O2SAT 100
[2025-03-24] MEDS ORDERED: SODIUM BICARBONATE 8.4% SYRING 100 ML ONE (21:34)
[2025-03-24 22:17] VITALS: BP 122/75; PULSE 108; RESP 18; TEMP 97.6; O2SAT 100
[2025-03-24 22:30] VITALS: PULSE 89; RESP 20
[2025-03-24] MEDS: DEXTROSE 50% SYRINGE 50 ML IV STA (22:30)
[2025-03-24] MEDS: INSULIN REGULAR, HUMAN 100 UNIT/1 ML IV ONE (22:34)
[2025-03-24] MEDS: FUROSEMIDE INJ 10 MG/ML 4 ML VIAL IV ONE (22:37)
[2025-03-24] MEDS: SOD POLYSTYRENE SULFONATE SUSP 15 GM/60 ML BTL PO ONE (22:38)
[2025-03-24] MEDS: SODIUM BICARBONATE 8.4% INJ 50 ML SYR IV STA (22:39)
[2025-03-24] MEDS: CALCIUM GLUC 1 G/50 ML NACL 100 ML IV ONE ×2 (22:40→22:41)
[2025-03-24] MEDS ORDERED: TRAMADOL HCL 50 MG TAB PO PRN (23:15)
[2025-03-24] MEDS ORDERED: HYDRALAZINE HCL 20 MG/ML VIAL IV PRN (23:15)
[2025-03-24] MEDS ORDERED: ALBUTEROL 90 MCG/ACT INHALER INH PRN (23:15)
[2025-03-24] MEDS ORDERED: SEVELAMER CARB800 MG PO (23:39)
[2025-03-24] MEDS ORDERED: METOPROLOL SUCC50 MG PO (23:39)
[2025-03-24] MEDS ORDERED: LORATADINE10 MG PO (23:39)
[2025-03-24] MEDS ORDERED: PRORENAL VITAL1 EACH PO (23:39)
[2025-03-24 23:45] VITALS: BP 150/108; PULSE 89; RESP 18; TEMP 97.6; O2SAT 96
[2025-03-25] VITALS (10 sets, daily range): BP systolic 109–122; BP diastolic 52–87; PULSE 67–108; RESP 18–20; TEMP 97.6–98.1; O2SAT 93–100
[2025-03-25] MEDS: APIXABAN 2.5 MG TABLET PO SCH (00:38)
[2025-03-25] MEDS: METOPROLOL TARTRATE 50 MG TAB PO SCH (00:38)
[2025-03-25] MEDS ORDERED: SODIUM CHLORIDE 0.9% 1000ML 2,000 ML IV PRN ×2 (05:15→19:45)
[2025-03-25 07:44] LABS: BASOPHILS % 0.4 % (0.0-1.0); EOSINOPHILS % 2.5 % (0.0-6.0); LYMPHOCYTES % 8.5 % (18.0-39.1); MONOCYTES % 4.9 % (4.4-11.3); NEUTROPHILS % 81.1 % (38.7-80.0); RED CELL DISTRIBUTION WIDTH 19.9 % (11.7-14.4)
[2025-03-25 08:02] LABS: EST GLOMERULAR FILTRATION RATE 3.0 ML/MIN (>=60)
[2025-03-25] MEDS: OMEGA 3 POLYUNSAT FATTY ACIDS 1000 MG SOFTGEL PO SCH (08:57)
[2025-03-25] MEDS: BUMETANIDE 1 MG TAB PO SCH (08:57)
[2025-03-25] MEDS: GABAPENTIN 100 MG CAP PO SCH (08:57)
[2025-03-25] MEDS: PANTOPRAZOLE SOD 40 MG TABEC PO SCH (08:57)
[2025-03-25 10:06] LABS: PLATELET ESTIMATE ADEQUATE; PLATELET MORPHOLOGY COMMENT NORMAL; RBC MORPHOLOGY COMMENT ABNORMAL
[2025-03-25] MEDS: HEPARIN SOD (PORCINE) 1000 UNIT/ML SDV ONE (11:39)
[2025-03-25 15:48] LABS: BASOPHILS % 0.2 % (0.0-1.0); EOSINOPHILS % 2.6 % (0.0-6.0); LYMPHOCYTES % 6.7 % (18.0-39.1); MONOCYTES % 4.6 % (4.4-11.3); NEUTROPHILS % 84.2 % (38.7-80.0); RED CELL DISTRIBUTION WIDTH 20.2 % (11.7-14.4)
[2025-03-25] MEDS: SODIUM CHLORIDE 0.9% 250ML 250 ML IV ONE (17:32)
[2025-03-25] MEDS ORDERED: HEPARIN SOD (PORCINE) 1000 UNIT/ML SDV IV PRN (19:45)
[2025-03-25] MEDS: ATORVASTATIN 40 MG TAB PO SCH (20:39)
[2025-03-26] VITALS (8 sets, daily range): BP systolic 106–123; BP diastolic 40–76; PULSE 72–97; RESP 14–20; TEMP 97.7–98.8; O2SAT 96–99
[2025-03-26 06:48] LABS: BASOPHILS % 0.3 % (0.0-1.0); EOSINOPHILS % 3.8 % (0.0-6.0); LYMPHOCYTES % 9.4 % (18.0-39.1); MONOCYTES % 5.3 % (4.4-11.3); NEUTROPHILS % 79.7 % (38.7-80.0); RED CELL DISTRIBUTION WIDTH 20.1 % (11.7-14.4)
[2025-03-26 07:19] LABS: EST GLOMERULAR FILTRATION RATE 3.0 ML/MIN (>=60)
[2025-03-26] MEDS ORDERED: HEPARIN SOD (PORCINE) 1000 UNIT/ML SDV IV PRN (09:30)
[2025-03-26] MEDS ORDERED: ALBUMIN 25% 12.5GM 0.25 GM/ML BTL IV PRN (09:30)
[2025-03-26 09:44] LABS: EOSINOPHILS % (MANUAL) 1 % (0-7); LYMPHOCYTES % (MANUAL) 8 % (19-48); MONOCYTES % (MANUAL) 4 % (3.4-9.0); NEUTROPHILS % (MANUAL) 86 % (40-74); REACTIVE LYMPHOCYTES 1
[2025-03-26 09:45] LABS: PLATELET ESTIMATE ADEQUATE; PLATELET MORPHOLOGY COMMENT NORMAL; RBC MORPHOLOGY COMMENT NORMAL
[2025-03-26] MEDS: CYANOCOBALAMIN INJ 1,000 MCG/ML VIAL IM ONE (10:37)
[2025-03-26] MEDS: DIPHENHYDRAMINE HCL INJ 50 MG/ML VIAL IV ONE ×2 (15:43→16:14)
[2025-03-26] MEDS: ACETAMINOPHEN 325 MG TAB PO ONE (15:43)
[2025-03-26] MEDS: SODIUM CHLORIDE 0.9% 250ML 250 ML IV ONE ×2 (15:44→16:14)
[2025-03-26] MEDS: ACETAMINOPHEN 325 MG TAB PO STA (16:13)
[2025-03-26] MEDS: CALCIUM CARBONATE 500 MG CHEWABLE TABS PO SCH (21:14)
[2025-03-27] VITALS (10 sets, daily range): BP systolic 105–144; BP diastolic 55–94; PULSE 85–100; RESP 16–20; TEMP 97–98.7; O2SAT 95–100
[2025-03-27 06:44] LABS: BASOPHILS % 0.3 % (0.0-1.0); EOSINOPHILS % 3.8 % (0.0-6.0); LYMPHOCYTES % 8.5 % (18.0-39.1); MONOCYTES % 5.3 % (4.4-11.3); NEUTROPHILS % 80.7 % (38.7-80.0); RED CELL DISTRIBUTION WIDTH 21.6 % (11.7-14.4)
[2025-03-27 07:17] LABS: EST GLOMERULAR FILTRATION RATE 5.0 ML/MIN (>=60)
[2025-03-27] MEDS: SODIUM CHLORIDE 0.9% 250ML 250 ML ONE (11:00)
[2025-03-27 12:17] LABS: EOSINOPHILS % (MANUAL) 4 % (0-7); LYMPHOCYTES % (MANUAL) 12 % (19-48); MONOCYTES % (MANUAL) 7 % (3.4-9.0); NEUTROPHILS % (MANUAL) 76 % (40-74); PLATELET ESTIMATE ADEQUATE; PLATELET MORPHOLOGY COMMENT NORMAL; RBC MORPHOLOGY COMMENT NORMAL; REACTIVE LYMPHOCYTES 1
[2025-03-27 13:59] LABS: HEPATITIS B SURFACE AG (P) Negative
[2025-03-27 14:09] LABS: HEPATITIS B CORE AB TOTAL 187.0; HEPATITIS B SURFACE AB QUANT Negative
[2025-03-28 00:30] VITALS: BP 119/76; PULSE 92; RESP 17; TEMP 97.9; O2SAT 96
[2025-03-28 04:34] VITALS: BP 123/78; PULSE 92; RESP 17; TEMP 98.2; O2SAT 97
[2025-03-28 05:30] LABS: BASOPHILS % 0.3 % (0.0-1.0); EOSINOPHILS % 4.0 % (0.0-6.0); LYMPHOCYTES % 10.5 % (18.0-39.1); MONOCYTES % 6.5 % (4.4-11.3); NEUTROPHILS % 77.6 % (38.7-80.0); RED CELL DISTRIBUTION WIDTH 22.5 % (11.7-14.4)
[2025-03-28 07:56] VITALS: PULSE 91; RESP 20; O2SAT 96
[2025-03-28 08:04] VITALS: BP 123/77; PULSE 109; RESP 20; TEMP 97.9; O2SAT 100
[2025-03-28 09:31] VITALS: BP 123/77; PULSE 109; RESP 20; TEMP 97.9; O2SAT 100
== END 2025-03-28 12:00 | disposition home or self-care (01) | DRG 640 ==
LOC: ER 18:19 → ERHOLD 20:55 → MED/SURG3 22:28 → OBSVTOIN 03-26 07:38
PROVIDERS: ADMIT Internal Medicine; ATTEND Internal Medicine
PROC: 30233N1 Transfusion of Nonautologous Red Blood Cells into Peripheral Vein, Percutaneous Approach (ICD-10-PCS; principal; 2025-03-26)
DX: E87.5 Hyperkalemia (principal); N18.6 End stage renal disease; I13.11 Hypertensive heart and chronic kidney disease without heart failure, with stage 5 chronic kidney disease, or end stage renal disease; I69.351 Hemiplegia and hemiparesis following cerebral infarction affecting right dominant side; K21.9 Gastro-esophageal reflux disease without esophagitis; I48.91 Unspecified atrial fibrillation; D63.1 Anemia in chronic kidney disease; E66.01 Morbid (severe) obesity due to excess calories; E83.51 Hypocalcemia; R53.81 Other malaise; Z99.2 Dependence on renal dialysis; Z91.158 Patient's noncompliance with renal dialysis for other reason; Z86.718 Personal history of other venous thrombosis and embolism; Z79.01 Long term (current) use of anticoagulants; Z88.5 Allergy status to narcotic agent; Z88.0 Allergy status to penicillin; Z88.8 Allergy status to other drugs, medicaments and biological substances; Z68.34 Body mass index [BMI] 34.0-34.9, adult
CPT/HCPCS: 36415; 71045; 80048; 80053; 82948; 83880; 85025; 86704; 86706; 86850; 86900; 86920; 87340; 93005; 94640; 94799; 99284; G0378; J0612; J1200; J1644; J1938; J2470; J3420; J7030; J7050; J7799; P9016